=== PATIENT | female | born 1945 | race Caucasian/White ===

== ENCOUNTER 2020-06-21 12:22 | Emergency (ER) | payer MEDICARE, MEDICAID ==
[~2020-06-21] VITALS: Ht 162.5 cm; Wt 85.3 kg
[2020-06-21 12:28] VITALS: BP 131/70
--- NOTE | 2020-06-21 12:49 | ED Cardiac General ---
History of Present Illness General Stated Complaint: DIZZINESS History of Present Illness Date Seen by Provider: Jun 21, 2020 Time Seen by Provider: 12:30 Initial Comments 74-year-old female presents for generalized complaints for the last 3- 4 months of not feeling good, vertigo, weakness that is generalized, and chronic constipation. The patient denies any shortness of breath or chest pain. She saw Dr. Kaba at the beginning of the month and had lab work-up which did not show a definitive cause. She has a history of mild anxiety and takes 1/2 mg of Xanax occasionally, usually at bedtime every 2 to 3 days. She has a noted tremor to the left eye, she reports its been present for several years she had Botox injections which did not improve her symptoms. History of [place] in the past and filter to right groin. Last cardiac work up was [address] Edward: stress test and Echo. No cardiac follow up. She notices weakness when she gets up and tries to be active. No history of Parkinson's, Her father did have Parkinson's disease. No history of diabetes. Thyroid disorder 20-30 years ago, took Synthroid and then her labs showed normal thyroid function and she stopped taking it. She reports sleeping more than normal. No history or exposure to COVID-19, she received her first vaccine 2 weeks ago. She takes Xarelto daily. She denies a history anemia, no recent labs for comparison. She has never had a colonoscopy, concerned because of a hernia and history of friends who have had colon perforations with colonoscopies. She does report frequent falls or bumping into things because of her unsteady gait. She denies any injuries related to the falls, no head injuries or LOC. Timing/Duration: other (3-4 months) Severity: mild Prior CP/Workup: echocardiography, heart attack, stress test Modifying Factors: improves with rest NTG SL BARGE PILOT: No ASA po BARGE PILOT: No Associated Systoms: No Chest Pain, No Cough, No Diaphoresis, No Fever/Chills, No Headaches; Loss of Appetite, Malaise; No Nausea/Vomiting, No Rash, No Seizure, No Shortness of Air, No Syncope; Weakness Allergies and Home Medications Allergies Coded Allergies: codeine (Verified Allergy, Unknown, 06/21/20) Patient Home Medication List Home Medication List Reviewed: Yes Review of Systems Review of Systems Constitutional: see HPI, dizziness, malaise, weakness EENTM: No Symptoms Reported, See HPI Respiratory: No Symptoms Reported, See HPI; Denies Shortness of Air, Denies SOA With Exertion Cardiovascular: No Symptoms Reported, See HPI; Denies Chest Pain Gastrointestinal: See HPI, Constipated Genitourinary: No Symptoms Reported, See HPI Musculoskeletal: see HPI, muscle weakness (generalized) Skin: no symptoms reported, see HPI; No change in color, No dryness Psychiatric/Neurological: See HPI, Anxiety, Tremors (left eye) Hematologic/Lymphatic: See HPI, Anemia All Other Systems Reviewed Negative Unless Noted: Yes Physical Exam Vital Signs Vital Signs - First Documented 06/21/20 12:28 Temp 36.1 Pulse 72 Resp 16 B/P (MAP) 131/70 (90) Pulse Ox 98 O2 Delivery Room Air Capillary Refill : Height, Weight, BMI Height: '" Weight: lbs. oz. kg; BMI Method: General Appearance: WD/WN, Anxious HEENT: PERRL/EOMI, TMs Normal, Normal ENT Inspection, Pharynx Normal, Other (noted tremor to left eye with excessive tearing) Neck: Full Range of Motion, Normal Inspection, Non Tender, Supple Respiratory: Chest Non Tender, Lungs Clear, Normal Breath Sounds Cardiovascular: Regular Rate, Rhythm, No Edema, No Murmur, Normal Peripheral Pulses Gastrointestinal: Normal Bowel Sounds, Non Tender, Soft Extremity: Normal Capillary Refill, Normal Inspection, Normal Range of Motion, No Calf Tenderness, No Pedal Edema, Other (ambulates with an unsteady gait, patient reports this has been present for several months, not getting worse. She does not use a walker or cane. She is able to raise onto her toes and heels but cannot ambulate on either. 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 Skin: Normal Color, Warm/Dry; No Ecchymosis (no bruises from falls) Progress/Results/Core Measures Results/Orders Lab Results Laboratory Tests Test 06/21/20 12:50 06/21/20 14:05 06/21/20 14:17 Range/Units White Blood Count 9.0 8.3 4.3-11.0 10^3/uL Red Blood Count 3.04 L 2.96 L 3.80-5.11 10^6/uL Hemoglobin 8.2 L 8.0 L 11.5-16.0 g/dL Hematocrit 26 L 25 L 35-52 % Mean Corpuscular Volume 85 86 80-99 fL Mean Corpuscular Hemoglobin 27 27 25-34 pg Mean Corpuscular Hemoglobin Concent 32 32 32-36 g/dL Red Cell Distribution Width 13.6 13.7 10.0-14.5 % Platelet Count 328 336 130-400 10^3/uL Mean Platelet Volume 9.1 9.8 9.0-12.2 fL Immature Granulocyte % (Auto) 0 0 % Neutrophils (%) (Auto) 70 66 42-75 % Lymphocytes (%) (Auto) 21 25 12-44 % Monocytes (%) (Auto) 8 8 0-12 % Eosinophils (%) (Auto) 0 0 0-10 % Basophils (%) (Auto) 1 1 0-10 % Neutrophils # (Auto) 6.3 5.5 1.8-7.8 10^3/uL Lymphocytes # (Auto) 1.9 2.1 1.0-4.0 10^3/uL Monocytes # (Auto) 0.7 0.7 0.0-1.0 10^3/uL Eosinophils # (Auto) 0.0 0.0 0.0-0.3 10^3/uL Basophils # (Auto) 0.1 0.1 0.0-0.1 10^3/uL Immature Granulocyte # (Auto) 0.0 0.0 0.0-0.1 10^3/uL Prothrombin Time 24.1 H 12.2-14.7 SEC INR Comment 2.1 H 0.8-1.4 Activated Partial Thromboplast Time 52 H 24-35 SEC D-Dimer 0.81 H 0.00-0.49 UG/ML Sodium Level 137 135-145 MMOL/L Potassium Level 4.1 3.6-5.0 MMOL/L Chloride Level 105 98-107 MMOL/L Carbon Dioxide Level 23 21-32 MMOL/L Anion Gap 9 5-14 MMOL/L Blood Urea Nitrogen 25 H 7-18 MG/DL Creatinine 1.47 H 0.60-1.30 MG/DL Estimat Glomerular Filtration Rate 35 BUN/Creatinine Ratio 17 Glucose Level 97 70-105 MG/DL Calcium Level 9.0 8.5-10.1 MG/DL Corrected Calcium 9.2 8.5-10.1 MG/DL Total Bilirubin 0.3 0.1-1.0 MG/DL Aspartate Amino Transf (AST/SGOT) 17 5-34 U/L Alanine Aminotransferase (ALT/SGPT) 8 0-55 U/L Alkaline Phosphatase 93 40-136 U/L Troponin I < 0.028 <0.028 NG/ML C-Reactive Protein High Sensitivity 0.50 0.00-0.50 MG/DL B-Type Natriuretic Peptide 110.3 H <100.0 PG/ML Total Protein 6.8 6.4-8.2 GM/DL Albumin 3.8 3.2-4.5 GM/DL TSH [place] Testing 1.60 0.35-4.94 UIU/ML Neutrophils % (Manual) 70 % Lymphocytes % (Manual) 25 % Monocytes % (Manual) 5 % Percent Immature Platelet Fraction 2.0 0.0-7.6 % Blood Morphology Comment SEE NOTE Absolute Reticulocyte Count 55 24-90 10e9/uL Percent Reticulocyte Count 1.84 0.50-2.40 % Urine Color YELLOW Urine Clarity CLEAR Urine pH 6.0 5-9 Urine Specific [place] 1.010 L 1.016-1.022 Urine Protein NEGATIVE NEGATIVE Urine Glucose (UA) NEGATIVE NEGATIVE Urine Ketones NEGATIVE NEGATIVE Urine Nitrite NEGATIVE NEGATIVE Urine Bilirubin NEGATIVE NEGATIVE Urine Urobilinogen 0.2 < = 1.0 MG/DL Urine Leukocyte Esterase 2+ H NEGATIVE Urine RBC (Auto) NEGATIVE NEGATIVE Urine RBC NONE /HPF Urine WBC 10-25 H /HPF Urine Squamous Epithelial Cells RARE /HPF Urine Renal Epithelial Cells 2-5 /HPF Urine Crystals NONE /LPF Urine Bacteria TRACE /HPF Urine Casts NONE /LPF Urine Mucus NEGATIVE /LPF Urine Culture Indicated YES My Orders Orders - AMPARO LOPEZ Ekg Tracing (06/21/20 12:46) BNP (06/21/20 12:46) Cbc With Automated Diff (06/21/20 12:46) Comprehensive Metabolic Panel (06/21/20 12:46) Hs C Reactive Protein (06/21/20 12:46) Protime With Inr (06/21/20 12:46) Partial Thromboplastin Time (06/21/20 12:46) Thyroid Analyzer (06/21/20 12:46) Troponin I (06/21/20 12:46) Fibrin Degradation Products (06/21/20 12:46) Meclizine Tablet (Antivert Tablet) (06/21/20 13:00) Ct Head Wo (06/21/20 13:22) Iron Tibc %Sat & Ferritin (06/21/20 13:59) Cyanocobalamin Injection (Vitamin B-12 I (06/21/20 14:30) Ua Culture If Indicated (06/21/20 14:39) Urine Culture (06/21/20 14:17) Anemia Analyzer Hem Tests (06/21/20 14:05) Cbc And Manual Diff (06/21/20 14:05) Immature Platelet Fraction (06/21/20 14:05) Reticulocyte Count (06/21/20 14:05) Anemia Analyzer Pathology (06/21/20 14:05) Medications Given in ED Current Medications Medications Dose Ordered Sig/Brendan Route Start Time Stop Time Status Last Admin Dose Admin Cyanocobalamin 1,000 mcg ONCE ONCE IM 06/21/20 14:30 06/21/20 14:31 DC 06/21/20 14:27 1,000 MCG Meclizine HCl 25 mg ONCE ONCE PO 06/21/20 13:00 06/21/20 13:01 DC 06/21/20 12:57 25 MG Vital Signs/I&O 06/21/20 12:28 Temp 36.1 Pulse 72 Resp 16 B/P (MAP) 131/70 (90) Pulse Ox 98 O2 Delivery Room Air Progress Progress Note : Time: 12:30 Progress Note 74-year-old female seen and evaluated, will obtain labs, EKG and CT head. Meclizine 25 mg for dizziness. 1315 Concern for possible Parkinsons based on her subjective and objective symptoms. Discussed need for further follow up, colonoscopy, lab work for anemia (she denies eating red meats, she doesn't like the smell or taste), will need to take Iron but with her constipation, she needs to take stool softeners and more water in her diet. Cane or walker discussed for the balance issues and unsteady gait. 1345 Spoke to nurse at Dr. Kaba's, she did not have CBC in the last 12 months to compare results from today. Will check for anemia, labs send out. Encouraged she follow up with her PCP and have labs requested from here or establish with a new PCP, who is closer to her home. 1400 Will give Vit B12 IM. 1415 Discussed all results with the patient and her . Nothing acute to warrant admission but she needs careful follow up for a confirmatory diagnosis. 1500 Spoke to pathologist, peripheral smear was normal, will send blood to [place] lab for anemia panel. Results will be sent to PCP. Initial ECG Impression Date: Jun 21, 2020 Initial ECG Rhythm: Normal Sinus Initial ECG Intervals: Normal Initial ECG Comparisson: No Previous ECG Available Diagnostic Imaging Diagonstic Imaging: CT Plain Films/CT/US/NM/MRI: head Comments NAME: LAURA VALVERDE [facility] REC#: [id number] PT STATUS: REG ER : 1945 PHYSICIAN: AMPARO LOPEZ ADMIT DATE: 06/21/20/ER Draft Date of Exam:06/21/20 CT HEAD WO PROCEDURE: CT head without contrast. TECHNIQUE: Multiple contiguous axial images were obtained through the brain without the use of intravenous contrast. Auto Exposure Controls were utilized during the CT exam to meet ALARA standards for radiation dose reduction. INDICATION: Weakness and dizziness. COMPARISON: No prior studies are available for comparison. FINDINGS: Ventricles and sulci are within normal limits. No sulcal effacement or midline shift is identified. No acute intra-axial or extra-axial hemorrhage is detected. Cisterns are patent. Visualized paranasal sinuses are clear. IMPRESSION: No acute intracranial process is detected. Dictated on workstation # [id number] Dict: 06/21/20 1335 Trans: 06/21/20 1338 [id number] [id number] Interpreted by: ALMA BARRAGAN MD Electronically signed by: Departure Impression Primary Impression: Vertigo Additional Impressions: Anemia Qualified Codes: D64.9 - Anemia, unspecified Unsteady gait Falls frequently Disposition: 01 HOME, SELF-CARE Condition: Stable Departure-Patient Inst. Decision time for Depature: 14:00 Referrals: YAKOV ESPINOZA JOHN M MD (PCP/Family) Primary Care Physician ALY EDWARD MD FACP FACC CCDS Patient Instructions: Vertigo (a Type of Dizziness) (DC), Anemia, Possibly From Low Iron, Adult Add. Discharge Instructions: Use walker at all times for ambulation to prevent falls and assist with dizziness and unsteady gait. Follow up with Dr. Kaba or establish care with a primary care provider closer to home (Dr. Fitzgerald at the [facility] or Dr. Phuong Scott at [facility] in [place]). Use [id number] meclizine 25 mg every 8 hours as needed for dizziness. Begin taking a multivitamin such as Centrum daily. Increase water intake, 16 ounces every 2-3 hours while awake. Take a stool softener twice daily. Consider evaluation by general surgery (Dr. Espinoza or [place]) for a colonoscopy. Call Dr. Edward, for cardiology follow up. Return to the Emergency Dept for new, urgent healthcare needs. Scripts Walker (Ultra-Light Rollator) 1 Each Each EACH DAILY PRN for DIZZINESS, #1 0 Refills Use when ambulatory Prov: AMPARO LOPEZ 06/21/20 Copy Copies To 1: LENKA KABA MD, AMY ARNP Jun 21, 2020 12:49
[2020-06-21 12:59] LABS: BASOPHILS # (AUTO) 0.1 10^3/uL (0.0-0.1); BASOPHILS % (AUTO) 1 % (0-10); EOSINOPHILS % (AUTO) 0 % (0-10); HEMATOCRIT 26 % (35-52); HEMOGLOBIN 8.2 g/dL (11.5-16.0); LYMPHOCYTES # (AUTO) 1.9 10^3/uL (1.0-4.0); LYMPHOCYTES % (AUTO) 21 % (12-44); MEAN CORPUSCULAR HEMOGLOBIN 27 pg (25-34); MEAN CORPUSCULAR HGB CONC 32 g/dL (32-36); MEAN CORPUSCULAR VOLUME 85 fL (80-99); MEAN PLATELET VOLUME 9.1 fL (9.0-12.2); MONOCYTES # (AUTO) 0.7 10^3/uL (0.0-1.0); MONOCYTES % (AUTO) 8 % (0-12); NEUTROPHILS # (AUTO) 6.3 10^3/uL (1.8-7.8); NEUTROPHILS % (AUTO) 70 % (42-75); PLATELET COUNT 328 10^3/uL (130-400)
[2020-06-21] MEDS ORDERED: MECLIZINE 25 MG (ANTIVERT) TAB PO ONE (13:00)
[2020-06-21 13:12] LABS: FIBRIN DEGRADATION PRODUCTS 0.81 UG/ML (0.00-0.49); INR 2.1 (0.8-1.4); PROTHROMBIN TIME PATIENT 24.1 SEC (12.2-14.7)
[2020-06-21 13:19] LABS: ALANINE AMINOTRANSFERASE 8 U/L (0-55); ALBUMIN 3.8 GM/DL (3.2-4.5); ALKALINE PHOSPHATASE 93 U/L (40-136); BILIRUBIN,TOTAL 0.3 MG/DL (0.1-1.0); BUN/CREATININE RATIO 17; CARBON DIOXIDE 23 MMOL/L (21-32); CHLORIDE 105 MMOL/L (98-107); CREATININE SERUM 1.47 MG/DL (0.60-1.30); GFR ESTIMATED 35; GLUCOSE 97 MG/DL (70-105); POTASSIUM 4.1 MMOL/L (3.6-5.0); SODIUM 137 MMOL/L (135-145); TOTAL PROTEIN 6.8 GM/DL (6.4-8.2)
--- NOTE | 2020-06-21 13:39 | Diagnostic Imaging Report ---
PROCEDURE: CT head without contrast. TECHNIQUE: Multiple contiguous axial images were obtained through the brain without the use of intravenous contrast. Auto Exposure Controls were utilized during the CT exam to meet ALARA standards for radiation dose reduction. INDICATION: Weakness and dizziness. COMPARISON: No prior studies are available for comparison. FINDINGS: Ventricles and sulci are within normal limits. No sulcal effacement or midline shift is identified. No acute intra-axial or extra-axial hemorrhage is detected. Cisterns are patent. Visualized paranasal sinuses are clear. IMPRESSION: No acute intracranial process is detected. Dictated by: Dictated on workstation # [id number]
[2020-06-21] MEDS ORDERED: WALK1EAC23 MC (14:03)
[2020-06-21] MEDS ORDERED: CYANOCOBALAMIN INJ 1000 MCG/ML IM ONE (14:30)
[2020-06-21 14:45] LABS: BILIRUBIN,URINE NEGATIVE (NEGATIVE); CLARITY,URINE CLEAR; COLOR,URINE YELLOW; GLUCOSE, URINE (UA) NEGATIVE (NEGATIVE); KETONES,URINE NEGATIVE (NEGATIVE); LEUKOCYTE ESTERASE ,URINE 2+ (NEGATIVE); NITRITE,URINE NEGATIVE (NEGATIVE); PROTEIN,URINE NEGATIVE (NEGATIVE)
[2020-06-21 15:02] LABS: BACTERIA,URINE TRACE /HPF; SQUAMOUS EPITHELIAL CELL,UR RARE /HPF
[2020-06-21 15:44] LABS: ABSOLUTE RETIC # 55 10e9/uL (24-90); BASOPHILS # (AUTO) 0.1 10^3/uL (0.0-0.1); BASOPHILS % (AUTO) 1 % (0-10); EOSINOPHILS % (AUTO) 0 % (0-10); HEMATOCRIT 25 % (35-52); LYMPHOCYTES # (AUTO) 2.1 10^3/uL (1.0-4.0); LYMPHOCYTES % (AUTO) 25 % (12-44); LYMPHOCYTES % (MANUAL) 25 %; MEAN CORPUSCULAR HEMOGLOBIN 27 pg (25-34); MEAN CORPUSCULAR HGB CONC 32 g/dL (32-36); MEAN CORPUSCULAR VOLUME 86 fL (80-99); MEAN PLATELET VOLUME 9.8 fL (9.0-12.2); MONOCYTES # (AUTO) 0.7 10^3/uL (0.0-1.0); MONOCYTES % (AUTO) 8 % (0-12); MONOCYTES % (MANUAL) 5 %; NEUTROPHILS # (AUTO) 5.5 10^3/uL (1.8-7.8); NEUTROPHILS % (AUTO) 66 % (42-75); NEUTROPHILS % (MANUAL) 70 %; PLATELET COUNT 336 10^3/uL (130-400); RETICULOCYTE % 1.84 % (0.50-2.40); WHITE BLOOD COUNT 8.3 10^3/uL (4.3-11.0)
== END 2020-06-21 14:34 | disposition home or self-care (01) ==
LOC: EDUNIT# 12:22 → ER 12:24
DX: R42 Dizziness and giddiness (principal); D64.9 Anemia, unspecified; R26.9 Unspecified abnormalities of gait and mobility; R29.6 Repeated falls; I10 Essential (primary) hypertension; Z88.5 Allergy status to narcotic agent
CPT/HCPCS: 36415; 70450; 80053; 81000; 82607; 82728; 82746; 83540; 83550; 83880; 84443; 84484; 85007; 85027; 85045; 85055; 85379; 85610; 85730; 86141; 87088; 93005

== ENCOUNTER 2021-11-14 14:56 | Inpatient (IN) | payer MEDICARE, MEDICAID ==
[~2021-11-14] VITALS: Ht 160 cm; Wt 85.7 kg
[~2021-11-14 14:56] MED LIST: WALK1EAC23 MC
--- NOTE | 2021-11-14 15:29 | ED General ---
General Chief Complaint: General Problems/Pain Stated Complaint: DIZZY/WEAKNESS Nursing Triage Note: PT ARRIVED VIA WHEELCHAIR WITH HER DAUGHTER AND GREAT GRANDSON. PT STATED THAT SHE HAS BEEN DIZZY, WEAK, AND SOB FOR 2 WEEKS. Source of Information: Patient Exam Limitations: No Limitations History of Present Illness Date Seen by Provider: Nov 14, 2021 Time Seen by Provider: 15:28 Initial Comments Patient is a 76-year-old female who presents to the ED with dizziness and weakness, lightheadedness. Symptoms over the past 2 weeks. States she is having difficulty getting around at home secondary to feeling weak which is diffuse. She states she feels like she is going to faint. Denies of room spinning. She has been having intermittent chest pain for some time with no worsening pain throughout the past 2 weeks. She states she is short of breath with ambulation. Denies of any increased leg swelling. She reports history of chronic back pain with spinal stenosis. She has weakness and pain to her left leg. No recent falls but did fall in July resulting in pain in her left leg. She is concerned for DVT. Currently on Xarelto. She reports a mild headache without significant visual changes. She does states she has some vision changes while watching TV. No fever, abdominal pain, cough. She states she has no urinary symptoms. Patient denies of any dark or bloody stools Allergies and Home Medications Allergies Coded Allergies: codeine (Verified Allergy, Unknown, 06/21/20) Patient Home Medication List Home Medication List Reviewed: Yes Walker (Ultra-Light Rollator) 1 Each Each, EACH MC DAILY PRN for DIZZINESS, (DME) Prescribed by: AMPARO LOPEZ on 06/21/20 1403 Review of Systems Review of Systems Constitutional: No diaphoresis; malaise EENTM: No blurred vision, No double vision, No mouth pain, No mouth swelling, No throat pain, No throat swelling Respiratory: No cough; short of breath Cardiovascular: chest pain Gastrointestinal: No abdominal pain, No diarrhea, No nausea, No vomiting Genitourinary: No decreased output Musculoskeletal: back pain, joint pain, muscle pain Skin: No see HPI, No change in color All Other Systems Reviewed Negative Unless Noted: Yes Past Gjxakvc-Twragh-Xzndrp Hx Patient Social History Tobacco Use?: No Substance use?: Yes Substance type: Marijuana Substance frequency: Once in a while Alcohol Use?: No Immunizations Up To Date Tetanus Booster (TDap): Unknown Influenza Vaccine Up-to-Date: Yes; Up-to-Date Seasonal Allergies Seasonal Allergies: No Past Medical History Surgery/Hospitalization HX: 2014 HEART ATTACK Surgeries: Yes Eye Surgery, Hysterectomy Respiratory: No Cardiac: Yes Hypertension Neurological: No INVESTIGATIONS CHIEF History: Hysterectomy Genitourinary: No Gastrointestinal: No Musculoskeletal: Yes Endocrine: No Cancer: No Psychosocial: Yes Anxiety Integumentary: No Physical Exam Vital Signs Vital Signs - First Documented 11/14/21 15:03 Temp 36.6 Pulse 85 Resp 16 B/P (MAP) 131/61 (84) Pulse Ox 98 O2 Delivery Room Air Capillary Refill : Less Than 3 Seconds Height, Weight, BMI Height: '" Weight: lbs. oz. kg; 32.00 BMI Method: General Appearance: No Apparent Distress, WD/WN Eyes: Bilateral Eye Normal Inspection, Bilateral Eye PERRL, Bilateral Eye EOMI HEENT: PERRL/EOMI, TMs Normal, Normal ENT Inspection, Pharynx Normal Neck: Full Range of Motion, Normal Inspection, Non Tender, Supple Respiratory: Chest Non Tender, Lungs Clear, Normal Breath Sounds, No Accessory Muscle Use, No Respiratory Distress Cardiovascular: Regular Rate, Rhythm, No Edema, No Gallop, No JVD Gastrointestinal: Normal Bowel Sounds, No Organomegaly, No Pulsatile Mass Back: Other (Lumbar midline tenderness. Bilateral lumbar paraspinal muscle tenderness.) Extremity: Normal Capillary Refill, Other (Equal pulses bilateral lower extremity. Tenderness to palpate left leg without swelling, bruising or redness. No coolness or evidence of redness) Neurologic/Psychiatric: Alert, Oriented x3, No Motor/Sensory Deficits, Normal Mood/Affect Progress/Results/Core Measures Suspected Sepsis SIRS Temperature: Pulse: 85 Respiratory Rate: 16 Laboratory Tests 11/14/21 16:45: White Blood Count 7.0 Blood Pressure 131 /61 Mean: 84 Laboratory Tests 11/14/21 16:45: Creatinine 1.54H, INR Comment 1.6H, Platelet Count 298, Total Bilirubin 0.2 Results/Orders Lab Results Laboratory Tests Test 11/14/21 15:25 11/14/21 16:45 Range/Units Urine Color YELLOW Urine Clarity CLEAR Urine pH 5.0 5-9 Urine Specific [place] 1.010 L 1.016-1.022 Urine Protein NEGATIVE NEGATIVE Urine Glucose (UA) NEGATIVE NEGATIVE Urine Ketones NEGATIVE NEGATIVE Urine Nitrite NEGATIVE NEGATIVE Urine Bilirubin NEGATIVE NEGATIVE Urine Urobilinogen 0.2 < = 1.0 MG/DL Urine Leukocyte Esterase 1+ H NEGATIVE Urine RBC (Auto) NEGATIVE NEGATIVE Urine RBC NONE /HPF Urine WBC 2-5 /HPF Urine Squamous Epithelial Cells NONE /HPF Urine Crystals NONE /LPF Urine Bacteria NEGATIVE /HPF Urine Casts NONE /LPF Urine Mucus NEGATIVE /LPF Urine Culture Indicated NO Influenza Type A (RT-PCR) Not Detected Not Detecte Influenza Type B (RT-PCR) Not Detected Not Detecte SARS-CoV-2 RNA (RT-PCR) Not Detected Not Detecte White Blood Count 7.0 4.3-11.0 10^3/uL Red Blood Count 2.35 L 3.80-5.11 10^6/uL Hemoglobin 6.2 *L 11.5-16.0 g/dL Hematocrit 20 *L 35-52 % Mean Corpuscular Volume 84 80-99 fL Mean Corpuscular Hemoglobin 26 25-34 pg Mean Corpuscular Hemoglobin Concent 32 32-36 g/dL Red Cell Distribution Width 14.0 10.0-14.5 % Platelet Count 298 130-400 10^3/uL Mean Platelet Volume 9.2 9.0-12.2 fL Immature Granulocyte % (Auto) 0 % Neutrophils (%) (Auto) 68 42-75 % Lymphocytes (%) (Auto) 23 12-44 % Monocytes (%) (Auto) 8 0-12 % Eosinophils (%) (Auto) 0 0-10 % Basophils (%) (Auto) 1 0-10 % Neutrophils # (Auto) 4.8 1.8-7.8 10^3/uL Lymphocytes # (Auto) 1.6 1.0-4.0 10^3/uL Monocytes # (Auto) 0.6 0.0-1.0 10^3/uL Eosinophils # (Auto) 0.0 0.0-0.3 10^3/uL Basophils # (Auto) 0.1 0.0-0.1 10^3/uL Immature Granulocyte # (Auto) 0.0 0.0-0.1 10^3/uL Prothrombin Time 19.4 H 12.2-14.7 SEC INR Comment 1.6 H 0.8-1.4 Activated Partial Thromboplast Time 46 H 24-35 SEC Sodium Level 134 L 135-145 MMOL/L Potassium Level 4.0 3.6-5.0 MMOL/L Chloride Level 104 98-107 MMOL/L Carbon Dioxide Level 23 21-32 MMOL/L Anion Gap 7 5-14 MMOL/L Blood Urea Nitrogen 30 H 7-18 MG/DL Creatinine 1.54 H 0.60-1.30 MG/DL Estimat Glomerular Filtration Rate 35 BUN/Creatinine Ratio 19 Glucose Level 124 H 70-105 MG/DL Calcium Level 9.1 8.5-10.1 MG/DL Corrected Calcium 9.5 8.5-10.1 MG/DL Magnesium Level 1.8 1.6-2.4 MG/DL Total Bilirubin 0.2 0.1-1.0 MG/DL Aspartate Amino Transf (AST/SGOT) 13 5-34 U/L Alanine Aminotransferase (ALT/SGPT) 9 0-55 U/L Alkaline Phosphatase 81 40-136 U/L Troponin I < 0.028 <0.028 NG/ML B-Type Natriuretic Peptide 93.7 <100.0 PG/ML Total Protein 6.3 L 6.4-8.2 GM/DL Albumin 3.5 3.2-4.5 GM/DL Lipase 13 8-78 U/L My Orders Orders - JANA DIETZ Urinalysis (11/14/21 15:02) Us Venous Lower Ext Lt (11/14/21 15:16) Cbc With Automated Diff (11/14/21 15:16) Comprehensive Metabolic Panel (11/14/21 15:16) Lipase (11/14/21 15:16) Bnp [place] (11/14/21 15:16) Troponin I [place] (11/14/21 15:16) Magnesium (11/14/21 15:16) Ekg Tracing (11/14/21 15:16) Chest 1 View, Ap/Pa Only (11/14/21 15:16) Covid 19 Inhouse Test (11/14/21 15:16) Influenza A And B By Pcr (11/14/21 15:16) Ns Iv 1000 Ml (Sodium Chloride 0.9%) (11/14/21 16:33) Partial Thromboplastin Time (11/14/21 16:34) Protime With Inr (11/14/21 16:34) Ct Head Wo (11/14/21 16:35) Type And Screen (11/14/21 17:07) Pantoprazole Injection (Protonix Injecti (11/14/21 17:45) Vital Signs/I&O 11/14/21 15:03 Temp 36.6 Pulse 85 Resp 16 B/P (MAP) 131/61 (84) Pulse Ox 98 O2 Delivery Room Air Capillary Refill : Less Than 3 Seconds Blood Pressure Mean: 84 ECG Comment Sinus rhythm with first-degree AV block, 71 bpm, QRS duration 141 MS, QTc 416 MS Departure Communication (PCP) Patient is a 76-year-old female who presents the ED for weakness fatigue dark tarry stool. Intermittent chest pain but denies of any worsening pain. Currently on Xarelto secondary to DVT left lower abd. She does report left leg pain. Denies unilateral muscle weakness or sensory changes. Neuro exam u nremarkable. Ultrasound the left leg secondary to the pain with previous injury was negative for DVT. History of spinal stenosis. Equal pulses bilateral lower extremity. Denies of any bowel or urine incontinence or saddle paresthesia. EKG showed sinus rhythm with first-degree AV block. Cardiac work-up unremarkable. Chest x-ray positive for cardiomegaly but negative for pneumonia or pneumothorax. Hemoglobin 6.2. Hemoccult positive. Denies excessive NSAID use. No severe abdominal tenderness on palpation or complaining of abdominal pain at this time. Imaging was held. Chronic kidney disease stable. Patient will be started on 2 units of blood. Protonix 40 mg IV twice daily. Patient will be admitted for further evaluation. Patient was accepted by Dr. Taylor Impression Primary Impression: GI bleed Disposition: ADMITTED INPATIENT Condition: Stable Admissions Decision to Admit Reason: Admit from ER (General) Decision to Admit/Date: Nov 14, 2021 Time/Decision to Admit Time: 17:34 Departure-Patient Inst. Referrals: LENKA KABA MD (PCP/Family) Primary Care Physician JANA DIETZ Nov 14, 2021 15:29
[2021-11-14 15:36] LABS: BILIRUBIN,URINE NEGATIVE (NEGATIVE); CLARITY,URINE CLEAR; COLOR,URINE YELLOW; GLUCOSE, URINE (UA) NEGATIVE (NEGATIVE); KETONES,URINE NEGATIVE (NEGATIVE); LEUKOCYTE ESTERASE ,URINE 1+ (NEGATIVE); NITRITE,URINE NEGATIVE (NEGATIVE); PROTEIN,URINE NEGATIVE (NEGATIVE)
[2021-11-14 15:45] LABS: BACTERIA,URINE NEGATIVE /HPF
--- NOTE | 2021-11-14 15:57 | Diagnostic Imaging Report ---
PROCEDURE: US left lower extremity venous. TECHNIQUE: Multiple real-time grayscale images were obtained over the left lower extremity in various projections. Additional duplex Doppler and color Doppler images were also obtained. INDICATION: Left leg pain. There is no evidence of left lower extremity DVT. Left lower extremity deep venous system shows normal compressibility with normal response to augmentation and valsalva. No fluid collection or mass is detected. IMPRESSION: No evidence of left lower extremity DVT. Dictated by: Dictated on workstation # [id number]
--- NOTE | 2021-11-14 16:21 | Diagnostic Imaging Report ---
INDICATION: Cough and dizziness and weakness. TECHNIQUE: Frontal chest obtained at 04:01 p.m. FINDINGS: There is cardiomegaly and mild central vascular prominence. There is no focal infiltrate or pneumothorax or pleural fluid. IMPRESSION: Cardiomegaly and mild central vascular prominence. No focal infiltrate or pneumothorax or pleural fluid. Dictated by: Dictated on workstation # [id number]
[2021-11-14] MEDS ORDERED: NS IV 1000 ML 1,000 ML IV STA (16:33)
[2021-11-14 16:54] LABS: BASOPHILS # (AUTO) 0.1 10^3/uL (0.0-0.1); BASOPHILS % (AUTO) 1 % (0-10); EOSINOPHILS % (AUTO) 0 % (0-10); LYMPHOCYTES # (AUTO) 1.6 10^3/uL (1.0-4.0); LYMPHOCYTES % (AUTO) 23 % (12-44); MEAN CORPUSCULAR HEMOGLOBIN 26 pg (25-34); MEAN CORPUSCULAR HGB CONC 32 g/dL (32-36); MEAN CORPUSCULAR VOLUME 84 fL (80-99); MEAN PLATELET VOLUME 9.2 fL (9.0-12.2); MONOCYTES # (AUTO) 0.6 10^3/uL (0.0-1.0); MONOCYTES % (AUTO) 8 % (0-12); NEUTROPHILS # (AUTO) 4.8 10^3/uL (1.8-7.8); NEUTROPHILS % (AUTO) 68 % (42-75); PLATELET COUNT 298 10^3/uL (130-400)
[2021-11-14 16:55] LABS: HEMOGLOBIN 6.2 g/dL (11.5-16.0)
[2021-11-14 16:56] LABS: HEMATOCRIT 20 % (35-52)
--- NOTE | 2021-11-14 17:14 | Diagnostic Imaging Report ---
PROCEDURE: CT head without contrast. TECHNIQUE: Multiple contiguous axial images were obtained through the brain without the use of intravenous contrast. Auto Exposure Controls were utilized during the CT exam to meet ALARA standards for radiation dose reduction. INDICATION: Dizziness and weakness. COMPARISON: Comparison is made with prior head CT from 06/21/2020. FINDINGS: Ventricles and sulci appear stable. There is no sulcal effacement. There is no midline shift. No acute intra-axial or extra-axial hemorrhage is detected. Cisterns are patent. The visualized paranasal sinuses are clear. IMPRESSION: Stable noncontrast head CT. No acute intracranial process is detected. Dictated by: Dictated on workstation # [id number]
[2021-11-14 17:17] LABS: INR 1.6 (0.8-1.4); PROTHROMBIN TIME PATIENT 19.4 SEC (12.2-14.7)
[2021-11-14 17:20] LABS: ALBUMIN 3.5 GM/DL (3.2-4.5); CHLORIDE 104 MMOL/L (98-107)
[2021-11-14 17:21] LABS: SODIUM 134 MMOL/L (135-145)
[2021-11-14 17:22] LABS: CALCIUM 9.1 MG/DL (8.5-10.1)
[2021-11-14 17:23] LABS: GLUCOSE 124 MG/DL (70-105); TOTAL PROTEIN 6.3 GM/DL (6.4-8.2)
[2021-11-14 17:24] LABS: CARBON DIOXIDE 23 MMOL/L (21-32)
[2021-11-14 17:25] LABS: BILIRUBIN,TOTAL 0.2 MG/DL (0.1-1.0)
[2021-11-14 17:26] LABS: ALKALINE PHOSPHATASE 81 U/L (40-136); CREATININE SERUM 1.54 MG/DL (0.60-1.30); GFR ESTIMATED 35
[2021-11-14 17:27] LABS: BUN/CREATININE RATIO 19
[2021-11-14 17:29] LABS: ALANINE AMINOTRANSFERASE 9 U/L (0-55); MAGNESIUM 1.8 MG/DL (1.6-2.4)
[2021-11-14 17:30] LABS: LIPASE 13 U/L (8-78)
[2021-11-14] MEDS ORDERED: PANTOPRAZOLE 40 MG (PROTONIX) VIAL IV ONE (17:45)
[2021-11-14 18:43] VITALS: BP 143/78
[2021-11-14] MEDS ORDERED: NS IV 500 ML 500 ML IV ONE (18:45)
[2021-11-14] MEDS ORDERED: CATHETER FLUSH 10 ML SYR IVP PRN (19:00)
[2021-11-14 19:07] VITALS: BP 134/63
--- NOTE | 2021-11-14 19:51 | Consultation - Surgery ---
PEACE LU 11/14/211950: History of Present Illness History of Present Illness Patient Consulted On(nadira/time) 11/14/21 19:50 Date Seen by Provider: Nov 14, 2021 Time Seen by Provider: 19:50 Reason for Visit: Anemia History of Present Illness 76yo female with h/o ventral hernia, hysterectomy, bladder surgery, HTN, pericardial effusion, and abdominal DVT, presents to the ED with c/o weakness and lightheadedness that has been worsening for the past 2 weeks. Pt notes that lightheadedness is worsened with movement and has been having trouble with daily activities. Pt states that when she stands she now feels like she is going to faint. Pt notes associated shortness of breath with ambulation that has limited her daily life. Pt notes that she has history of DVT in the left lower abdomen that required surgical intervention in 2013. Pt currently takes Xarelto. Pt states that she had an EGD [address] Barragan d/t low iron level. Pt had a Hgb of 6.4 in the ED and was hemoccult positive. Per ED physician, pt had left LE pain after a fall and was concerned about DVT. Pt had doppler study done in ED that showed no evidence of a left lower extremity DVT. Pt denies having ever having a colonoscopy. Pt denies vomiting, nausea, blood in the stool or urine, abd pain, CP, and sweats. Pt had a chest CT on 11/14 that showed cardiomegaly and mild vascular prominence. There were no focal infiltrates, pneumothorax, or pleural fluid noted. Pt had a head CT on 11/14 that showed no acute intracranial process. Allergies and Home Medications Allergies Coded Allergies: codeine (Verified Allergy, Unknown, 06/21/20) Patient Home Medication List Calcium Carbonate/Mag Oxide/Zn (Nfdotro-Yochpobzh-Rvpp Tablet) 333 Mg-133 Mg-5 Mg Tablet, 1 EACH PO 1200, (Reported) Entered as Reported by: АЛЕКСАНДР BRIGHT on 11/15/21 114 Last Action: Held Clonazepam (Clonazepam) 1 Mg Tablet, 1 MG PO HS PRN for ANXIETY, (Reported) Entered as Reported by: АЛЕКСАНДР BRIGHT on 11/15/21 1146 Last Action: Continued Cyanocobalamin (Vitamin B-12) (Vitamin B-12) 2,500 Mcg Tab.subl, 2,500 MCG SL DAILY, (Reported) Entered as Reported by: АЛЕКСАНДР BRIGHT on 11/15/211145 Last Action: Held Cyclobenzaprine HCl (Cyclobenzaprine HCl) 10 Mg Tablet, 10 MG PO HS, (Reported) Entered as Reported by: АЛЕКСАНДР BRIGHT on 11/15/211145 Last Action: Continued Iron,Carbonyl/Ascorbic Acid (Iron 100-Vitamin C Tablet) 100 Mg-250 Mg Tablet, 1 EACH PO DAILY, (Reported) Entered as Reported by: АЛЕКСАНДР BRIGHT on 11/15/211145 Last Action: Held Meloxicam (Meloxicam) 15 Mg Tablet, 15 MG PO HS, (Reported) Entered as Reported by: АЛЕКСАНДР BRIGHT on 11/15/211145 Last Action: Held Multivitamin (Multivitamin) 1 Each Tablet, 1 EACH PO 1200, (Reported) Entered as Reported by: АЛЕКСАНДР BRIGHT on 11/15/211145 Last Action: Converted Olmesartan/Hydrochlorothiazide (Olmesartan-Hctz 40-12.5 mg Tab) 40 Mg-12.5 Mg Tablet, 0.5 EA PO DAILY, (Reported) Entered as Reported by: АЛЕКСАНДР BRIGHT on 11/15/211145 Last Action: Converted Propranolol HCl (Propranolol HCl) 20 Mg Tablet, 20 MG PO DAILY, (Reported) Entered as Reported by: АЛЕКСАНДР BRIGHT on 11/15/211145 Last Action: Continued Propranolol HCl (Propranolol HCl) 20 Mg Tablet, 40 MG PO HS, (Reported) Entered as Reported by: АЛЕКСАНДР BRIGHT on 11/15/211145 Last Action: Continued Rivaroxaban (Xarelto) 20 Mg Tablet, 20 MG PO DAILY, (Reported) Entered as Reported by: АЛЕКСАНДР BRIGHT on 11/15/211145 Last Action: Held Tramadol HCl (Tramadol HCl) 50 Mg Tablet, 50 MG PO Q6H PRN for PAIN-MODERATE (5- 7), (Reported) Entered as Reported by: АЛЕКСАНДР BRIGHT on 11/15/211145 Last Action: Continued Discontinued Medications Walker (Ultra-Light Rollator) 1 Each Each, EACH MC DAILY PRN for DIZZINESS, (DME) Discontinued Reason: No Longer Taking Prescribed by: AMPARO LOPEZ on 06/21/20 1403 Last Action: Discontinued Past Ornwzru-Hxmnaj-Lxgvfw Hx Patient Social History Smoking Status: Never a Smoker Recent Hopitalizations: No Alcohol Use?: No Substance type: Marijuana Immunizations Up To Date Tetanus Booster (TDap): Unknown Seasonal Allergies Seasonal Allergies: No Surgeries History of Surgeries: Yes Surgeries: Eye Surgery, Hysterectomy Respiratory History of Respiratory Disorde: No Cardiovascular History of Cardiac Disorders: Yes Cardiac Disorders: Hypertension Neurological History of Neurological Disord: No Reproductive System CLAIM REP History: Hysterectomy Genitourinary History of Genitourinary Disor: No Gastrointestinal History of Gastrointestinal Di: No Musculoskeletal History of Musculoskeletal Dis: Yes Endocrine History of Endocrine Disorders: No Cancer History of Cancer: No Psychosocial History of Psychiatric Problem: Yes Behavioral Health Disorders: Anxiety Integumentary History of Skin or Integumenta: No Family Medical History Family Medial History: Alzheimer's disease Cardiovascular disease Parkinson's disease Review of Systems-General Constitutional: No chills, No diaphoresis EENTM: No ear discharge, No mouth swelling Respiratory: No cough, No hemoptysis Cardiovascular: No chest pain, No edema Gastrointestinal: No abdominal pain, No hematemesis Genitourinary: No hematuria, No incontinence Musculoskeletal: No joint swelling, No muscle twitching Skin: No change in color, No change in hair/nails Psychiatric/Neurological: Denies Anxiety, Denies Depressed Physical Exam-General Problems Physical Exam Vital Signs Vital Signs - First Documented 11/14/21 15:03 Temp 36.6 Pulse 85 Resp 16 B/P (MAP) 131/61 (84) Pulse Ox 98 O2 Delivery Room Air Capillary Refill : Less Than 3 Seconds General Appearance: WD/WN, no apparent distress HEENT: PERRL/EOMI, normal ENT inspection Neck: non-tender, normal inspection Respiratory: no respiratory distress, no accessory muscle use Cardiovascular: no edema, no JVD Gastrointestinal: non tender, soft Rectal: deferred Back: normal inspection, no CVA tenderness Extremities: normal range of motion, non-tender Neurologic/Psychiatric: alert, normal mood/affect Skin: normal color, warm/dry Lymphatic: no adenopathy Data Review Labs Laboratory Tests 11/14/21 15:25: Urine Color YELLOW, Urine Clarity CLEAR, Urine pH 5.0, Urine Specific [place] 1.010L, Urine Protein NEGATIVE, Urine Glucose (UA) NEGATIVE, Urine Ketones NEGATIVE, Urine Nitrite NEGATIVE, Urine Bilirubin NEGATIVE, Urine Urobilinogen 0.2, Urine Leukocyte Esterase 1+H, Urine RBC (Auto) NEGATIVE, Urine RBC NONE, Urine WBC 2-5, Urine Squamous Epithelial Cells NONE, Urine Crystals NONE, Urine Bacteria NEGATIVE, Urine Casts NONE, Urine Mucus NEGATIVE, Urine Culture Indicated NO, Influenza Type A (RT-PCR) Not Detected, Influenza Type B (RT-PCR) Not Detected, SARS-CoV-2 RNA (RT-PCR) Not Detected 11/14/21 16:45: White Blood Count 7.0, Red Blood Count 2.35L, Hemoglobin 6.2*L, Hematocrit 20*L, Mean Corpuscular Volume 84, Mean Corpuscular Hemoglobin 26, Mean Corpuscular Hemoglobin Concent 32, Red Cell Distribution Width 14.0, Platelet Count 298, Mean Platelet Volume 9.2, Immature Granulocyte % (Auto) 0, Neutrophils (%) (Auto) 68, Lymphocytes (%) (Auto) 23, Monocytes (%) (Auto) 8, Eosinophils (%) (Auto) 0, Basophils (%) (Auto) 1, Neutrophils # (Auto) 4.8, Lymphocytes # (Auto) 1.6, Monocytes # (Auto) 0.6, Eosinophils # (Auto) 0.0, Basophils # (Auto) 0.1, Immature Granulocyte # (Auto) 0.0, Prothrombin Time 19.4H, INR Comment 1.6H, Activated Partial Thromboplast Time 46H, Sodium Level 134L, Potassium Level 4.0, Chloride Level 104, Carbon Dioxide Level 23, Anion Gap 7, Blood Urea Nitrogen 30H, Creatinine 1.54H, Estimat Glomerular Filtration Rate 35, BUN/Creatinine Ratio 19, Glucose Level 124H, Calcium Level 9.1, Corrected Calcium 9.5, Magnesium Level 1.8, Total Bilirubin 0.2, Aspartate Amino Transf (AST/SGOT) 13, Alanine Aminotransferase (ALT/SGPT) 9, Alkaline Phosphatase 81, Troponin I < 0.0 28, B-Type Natriuretic Peptide 93.7, Total Protein 6.3L, Albumin 3.5, Lipase 13 Assessment/Plan Assessment/Plan Assessment/Plan Anemia Lightheadedness h/o abdominal DVT h/o pericardial effusion ventral hernia Monitor labs NPO Plan for EGD and Colonoscopy YAKOV ESPINOZA DO 11/15/21 4151: History of Present Illness History of Present Illness History of Present Illness Consult requested by DR. BARRAGAN for anemia Patient is a 76-year-old female who presents to the emergency department with weakness and lightheadedness. This is been increasing over the last couple weeks. Patient notes that with ambulating she gets more short of breath. She is on anticoagulation. This is due to a history of DVT multiple years ago. She states that she had an EGD approximately 6 months ago due to a low iron level with Dr. Anthony. She has never had a colonoscopy. Her hemoglobin was 6.4 and she was found to be Hemoccult positive. She notes some pain in her left lower extremity but her ultrasound for DVT was negative. Allergies and Home Medications Allergies Coded Allergies: codeine (Verified Allergy, Unknown, 06/21/20) Patient Home Medication List Home Medication List Reviewed: Yes Calcium Carbonate/Mag Oxide/Zn (Aypzuuh-Qaovglgbp-Rkbu Tablet) 333 Mg-133 Mg-5 Mg Tablet, 1 EACH PO 1200, (Reported) Entered as Reported by: АЛЕКСАНДР BRIGHT on 11/15/211145 Last Action: Held Clonazepam (Clonazepam) 1 Mg Tablet, 1 MG PO HS PRN for ANXIETY, (Reported) Entered as Reported by: АЛЕКСАНДР BRIGHT on 11/15/211145 Last Action: Continued Cyanocobalamin (Vitamin B-12) (Vitamin B-12) 2,500 Mcg Tab.subl, 2,500 MCG SL DAILY, (Reported) Entered as Reported by: АЛЕКСАНДР BRIGHT on 11/15/211145 Last Action: Held Cyclobenzaprine HCl (Cyclobenzaprine HCl) 10 Mg Tablet, 10 MG PO HS, (Reported) Entered as Reported by: АЛЕКСАНДР BRIGHT on 11/15/211145 Last Action: Continued Iron,Carbonyl/Ascorbic Acid (Iron 100-Vitamin C Tablet) 100 Mg-250 Mg Tablet, 1 EACH PO DAILY, (Reported) Entered as Reported by: АЛЕКСАНДР BRIGHT on 11/15/211145 Last Action: Held Meloxicam (Meloxicam) 15 Mg Tablet, 15 MG PO HS, (Reported) Entered as Reported by: АЛЕКСАНДР BRIGHT on 11/15/211145 Last Action: Held Multivitamin (Multivitamin) 1 Each Tablet, 1 EACH PO 1200, (Reported) Entered as Reported by: АЛЕКСАНДР BRIGHT on 11/15/211145 Last Action: Converted Olmesartan/Hydrochlorothiazide (Olmesartan-Hctz 40-12.5 mg Tab) 40 Mg-12.5 Mg Tablet, 0.5 EA PO DAILY, (Reported) Entered as Reported by: АЛЕКСАНДР BRIGHT on 11/15/211145 Last Action: Converted Propranolol HCl (Propranolol HCl) 20 Mg Tablet, 20 MG PO DAILY, (Reported) Entered as Reported by: АЛЕКСАНДР BRIGHT on 11/15/211145 Last Action: Continued Propranolol HCl (Propranolol HCl) 20 Mg Tablet, 40 MG PO HS, (Reported) Entered as Reported by: АЛЕКСАНДР BRIGHT on 11/15/211145 Last Action: Continued Rivaroxaban (Xarelto) 20 Mg Tablet, 20 MG PO DAILY, (Reported) Entered as Reported by: АЛЕКСАНДР BRIGHT on 11/15/211145 Last Action: Held Tramadol HCl (Tramadol HCl) 50 Mg Tablet, 50 MG PO Q6H PRN for PAIN-MODERATE (5- 7), (Reported) Entered as Reported by: АЛЕКСАНДР BRIGHT on 11/15/211145 Last Action: Continued Discontinued Medications Walker (Ultra-Light Rollator) 1 Each Each, EACH MC DAILY PRN for DIZZINESS, (DME) Discontinued Reason: No Longer Taking Prescribed by: AMPARO LOPEZ on 06/21/20 1403 Last Action: Discontinued Past Sirhyvv-Gzgwve-Ncenhj Hx Reviewed Nursing Assessment Reviewed/Agree w Nursing PMH: Yes Family Medical History Significant Family History: No Pertinent Family Hx Family Medial History: Alzheimer's disease Cardiovascular disease Parkinson's disease Review of Systems-General Constitutional: No chills, No diaphoresis; weakness EENTM: No ear discharge, No blurred vision, No mouth pain, No mouth swelling Respiratory: No cough; dyspnea on exertion; No hemoptysis Cardiovascular: No chest pain, No edema Gastrointestinal: No abdominal pain, No hematemesis Genitourinary: No decreased output, No discharge, No hematuria, No incontinence Musculoskeletal: No joint swelling, No muscle twitching Skin: No change in color, No change in hair/nails Psychiatric/Neurological: Denies Anxiety, Denies Depressed All Other Systems Reviewed Negative Unless Noted: Yes (Negative excepted noted.) Physical Exam-General Problems Physical Exam General Appearance: WD/WN, no apparent distress HEENT: PERRL/EOMI, normal ENT inspection Neck: non-tender, supple, normal inspection Respiratory: chest non-tender, no respiratory distress, no accessory muscle use Cardiovascular: regular rate, rhythm, no JVD Gastrointestinal: non tender, soft Rectal: deferred Back: normal inspection, no CVA tenderness Extremities: normal range of motion, non-tender Neurologic/Psychiatric: alert, normal mood/affect Skin: warm/dry, pallor Lymphatic: no adenopathy Assessment/Plan Assessment/Plan Assessment/Plan Anemia Occult positive stool residential anticoagulation Lightheadedness h/o abdominal DVT h/o pericardial effusion ventral hernia Monitor labs NPO hold anticoagulatino 2 units prbc follow hgb transfuse as needed Protonix Plan for inpatient vs outpatient EGD and Colonoscopy Supervisory-Addendum Brief Verification & Attestation Participated in pt care: history, MDM, physical Personally performed: exam, history, MDM, supervision of care Care discussed with: Medical Student Procedures: n/a Results interpretation: Verified all documentation Verification and Attestation of Medical Student E/M Service A medical student performed and documented this service in my presence. I reviewed and verified all information documented by the medical student and made modifications to such information, when appropriate. I personally performed the physical exam and medical decision making. Yakov Espinoza, Nov 14, 2021,22:16 PEACE LU Nov 14, 2021 19:51 YAKOV ESPINOZA DO Nov 15, 2021 17:11
[2021-11-14 20:01] VITALS: BP 143/78
[2021-11-14] MEDS: PANTOPRAZOLE 40 MG (PROTONIX) VIAL IV SCH (21:18)
[2021-11-14] MEDS: CATHETER FLUSH 10 ML SYR IVP SCH (21:18)
[2021-11-14 21:28] VITALS: BP 111/65
[2021-11-14 21:55] VITALS: BP 138/65
[2021-11-15] VITALS (9 sets, daily range): BP systolic 121–152; BP diastolic 69–95
[2021-11-15 05:56] LABS: BASOPHILS # (AUTO) 0.1 10^3/uL (0.0-0.1); BASOPHILS % (AUTO) 1 % (0-10); EOSINOPHILS % (AUTO) 0 % (0-10); HEMATOCRIT 27 % (35-52); HEMOGLOBIN 8.7 g/dL (11.5-16.0); LYMPHOCYTES # (AUTO) 1.3 10^3/uL (1.0-4.0); LYMPHOCYTES % (AUTO) 21 % (12-44); MEAN CORPUSCULAR HEMOGLOBIN 28 pg (25-34); MEAN CORPUSCULAR HGB CONC 33 g/dL (32-36); MEAN CORPUSCULAR VOLUME 84 fL (80-99); MEAN PLATELET VOLUME 9.6 fL (9.0-12.2); MONOCYTES # (AUTO) 0.6 10^3/uL (0.0-1.0); MONOCYTES % (AUTO) 9 % (0-12); NEUTROPHILS # (AUTO) 4.3 10^3/uL (1.8-7.8); NEUTROPHILS % (AUTO) 69 % (42-75); PLATELET COUNT 264 10^3/uL (130-400); WHITE BLOOD COUNT 6.3 10^3/uL (4.3-11.0)
[2021-11-15] MEDS: CATHETER FLUSH 10 ML SYR IVP SCH ×3 (05:59→23:12)
[2021-11-15 06:13] LABS: POTASSIUM 3.9 MMOL/L (3.6-5.0)
[2021-11-15 06:14] LABS: CALCIUM 8.9 MG/DL (8.5-10.1)
[2021-11-15 06:18] LABS: CREATININE SERUM 1.2 MG/DL (0.60-1.30)
[2021-11-15] MEDS: PANTOPRAZOLE 40 MG (PROTONIX) VIAL IV SCH ×2 (09:02→23:12)
--- NOTE | 2021-11-15 10:44 | History & Physical-Hospitalist ---
History of Present Illness HPI/Chief Complaint Patient is a 76-year-old female with a past medical history of hypertension, DVT on Xarelto, coronary artery disease who presented to the ER due to weakness and shortness of breath. She reports her symptoms started roughly 2 weeks ago and have continued to worsen in that time span. She has a known history of anemia and her hemoglobin has been checked by her primary care doctor. She states a few months ago her hemoglobin was 6 and she was prescribed IV iron. Last month her hemoglobin was 12. Yesterday she was so weak that she could not even do her dishes and was very short of breath so decided to seek evaluation in the emergency room after talking with her primary care doctor's office. In the ER she was found to have a hemoglobin of 6.2 and was admitted for further work-up. Her Hemoccult was positive. She does report dark stools but thought it was due to the iron she takes. Source: patient Date Seen 11/15/21 Time Seen by a Provider: 09:45 Attending Physician Abdullahi Anthony MD PCP Admitting Physician: Clive Barragan MD Attending Physician: lCive Barragan MD Referring Physician Date of Admission Nov 14, 2021 at 17:38 Home Medications & Allergies Home Medications Reviewed patient Home Medication Reconciliation performed by pharmacy medication reconciliations engineering specialist technician and/or nursing. Patients Allergies have been reviewed. Allergies Allergies Coded Allergies codeine (Verified Allergy, Unknown, 06/21/20) Past Lvnwfzj-Slymel-Ogvoks Hx Patient Social History Employed/Student: retired Tobacco Use?: No Smoking Status: Never a Smoker Smokeless Tobacco Frequency: Never a User Use of E-Cig and/or Vaping dev: No Use of E-Cig and/or Vaping Aramis: Never a User Substance use?: No Substance type: Marijuana Substance frequency: Once in a while Alcohol Use?: No Pt feels they are or have been: No Immunizations Up To Date Tetanus Booster (TDap): More Than 5 Years Hepatitis A: Yes Hepatitis B: Yes Seasonal Allergies Seasonal Allergies: No Current Status status: No status: No Advance Directives: No Communicates: Verbally Primary Language: Sinhala Preferred Spoken Language: Sinhala Is interpretation needed?: No Implanted or Applied Medical D: None Past Medical History Surgeries: Eye Surgery, Hysterectomy Deep Vein Thrombosis, Heart Attack, Hypertension 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 Anxiety Family Medical History Reviewed Nursing Family Hx Alzheimer's disease Cardiovascular disease Parkinson's disease Review of Systems Constitutional: No chills, No fever; malaise, weakness EENTM: no symptoms reported Respiratory: No cough; dyspnea on exertion, short of breath Cardiovascular: No chest pain, No edema, No palpitations Gastrointestinal: No abdominal pain; melena; No nausea, No vomiting Genitourinary: no symptoms reported Musculoskeletal: joint pain (chronic knee and foot pain) Skin: no symptoms reported Psychiatric/Neurological: No Symptoms Reported Physical Exam Physical Exam Vital Signs Vital Signs - First Documented 11/14/21 15:03 Temp 36.6 Pulse 85 Resp 16 B/P (MAP) 131/61 (84) Pulse Ox 98 O2 Delivery Room Air Capillary Refill : Less Than 3 Seconds Height, Weight, BMI Height: '" Weight: lbs. oz. kg; 33.47 BMI Method: General Appearance: No Apparent Distress, WD/WN, Obese HEENT: PERRL/EOMI, Moist Mucous Membranes; No Scleral Icterus (L), No Scleral Icterus (R) Neck: Normal Inspection, Supple Respiratory: Lungs Clear, No Accessory Muscle Use, No Respiratory Distress Cardiovascular: Regular Rate, Rhythm, No JVD, No Murmur Gastrointestinal: Normal Bowel Sounds, Non Tender, Soft Extremity: Normal Capillary Refill, No Calf Tenderness, No Pedal Edema Neurologic/Psychiatric: Alert, Oriented x3, Normal Mood/Affect Skin: Normal Color, Warm/Dry Results Results/Procedures Labs Laboratory Tests 11/14/21 16:45 11/15/21 05:22 Patient resulted labs reviewed. Imaging: Reviewed Imaging Report Imaging [facility], [place] NAME: LAURA VALVERDE Lion [facility] REC#: [id number] PT STATUS: REG ER : 1945 PHYSICIAN: JANA DIETZ ADMIT DATE: 11/14/21/ER Signed Date of Exam:11/14/21 CHEST 1 VIEW, AP/PA ONLY INDICATION: Cough and dizziness and weakness. TECHNIQUE: Frontal chest obtained at 04:01 p.m. FINDINGS: There is cardiomegaly and mild central vascular prominence. There is no focal infiltrate or pneumothorax or pleural fluid. IMPRESSION: Cardiomegaly and mild central vascular prominence. No focal infiltrate or pneumothorax or pleural fluid. Dictated by: Dictated on workstation # [id number] Dict: 11/14/21 1615 Trans: 11/14/21 170 AS6 Interpreted by: FRANCK PAYNE MD Electronically signed by: FRANCK PAYNE MD 11/14/21 170 [facility], [place] NAME: LAURA VALVERDE [facility] REC#: [id number] PT STATUS: REG ER : 1945 PHYSICIAN: JANA DIETZ ADMIT DATE: 11/14/21/ER Signed Date of Exam:11/14/21 US VENOUS LOWER EXT LT PROCEDURE: US left lower extremity venous. TECHNIQUE: Multiple real-time grayscale images were obtained over the left lower extremity in various projections. Additional duplex Doppler and color Doppler images were also obtained. INDICATION: Left leg pain. There is no evidence of left lower extremity DVT. Left lower extremity deep venous system shows normal compressibility with normal response to augmentation and valsalva. No fluid collection or mass is detected. IMPRESSION: No evidence of left lower extremity DVT. Dictated by: Dictated on workstation # [id number] Dict: 11/14/21 1551 Trans: 11/14/21 171 [id number] [id number] Interpreted by: ALMA BARRAGAN MD Electronically signed by: ALMA BARRAGAN MD 11/14/211716 [facility], [place] NAME: LAURA VALVERDE [facility] REC#: [id number] PT STATUS: REG ER : 1945 PHYSICIAN: JANA DIETZ ADMIT DATE: 11/14/21/ER Signed Date of Exam:11/14/21 CT HEAD WO PROCEDURE: CT head without contrast. TECHNIQUE: Multiple contiguous axial images were obtained through the brain without the use of intravenous contrast. Auto Exposure Controls were utilized during the CT exam to meet ALARA standards for radiation dose reduction. INDICATION: Dizziness and weakness. COMPARISON: Comparison is made with prior head CT from 06/21/2020. FINDINGS: Ventricles and sulci appear stable. There is no sulcal effacement. There is no midline shift. No acute intra-axial or extra-axial hemorrhage is detected. Cisterns are patent. The visualized paranasal sinuses are clear. IMPRESSION: Stable noncontrast head CT. No acute intracranial process is detected. Dictated by: Dictated on workstation # [id number] Dict: 11/14/21 1709 Trans: 11/14/21 1716 AS6 [id number] Interpreted by: ALMA BARRAGNA MD Electronically signed by: ALMA BARRAGAN MD 11/14/21 1716 Assessment/Plan Admission Diagnosis GI Bleed Admission Status: Inpatient Order (span 2 midnights) Reason for Inpatient Admission: see below Assessment and Plan GI Bleed Hgb 6.2 on arrival Up to 8.7 with 2 units pRBCs FOBT+ Surgery consulted, appreciate recs Called Dr Davenport to discuss plan- he is operating at the moment so plan uncertain at the moment Will need EGD and colonoscopy Has never had an colonoscopy in the past History of DVT On Xarelto, held for now Usg negative at this time HTN Bp well controlled, trend Osteoarthritis Requests Ortho referral upon discharge DVT ppx: SCDs only due to anemia Diagnosis/Problems Diagnosis/Problems (1) GI bleed Status: Acute Qualifiers: GI bleed type/associated pathology: unspecified gastrointestinal hemorrhage type Qualified Codes: K92.2 - Gastrointestinal hemorrhage, unspecified (2) CAD (coronary artery disease) (3) Essential (primary) hypertension (4) Debility (5) H/O deep venous thrombosis (6) Chronic anticoagulation CLIVE BARRAGAN MD Nov 15, 2021 10:44
[2021-11-15] MEDS ORDERED: BENZONATATE 100 MG (TESSALON) CAPSULE PO PRN (10:45)
[2021-11-15] MEDS ORDERED: ANTACID SUSP 30 ML UDC (MYLANTA) PO PRN (10:45)
[2021-11-15] MEDS ORDERED: MILK OF MAGNESIA 400 MG/5 ML 30 ML UDC PO PRN (10:45)
[2021-11-15] MEDS ORDERED: MULT-1136 PO (11:46)
[2021-11-15] MEDS ORDERED: OLME-9 PO (11:46)
[2021-11-15] MEDS ORDERED: CALC-687 PO (11:46)
[2021-11-15] MEDS ORDERED: MELO15TA39 PO (11:46)
[2021-11-15] MEDS ORDERED: CYAN25003 SL (11:46)
[2021-11-15] MEDS ORDERED: PROP20TA5 PO ×2 (11:46)
[2021-11-15] MEDS ORDERED: IRON1TAB89 PO (11:46)
[2021-11-15] MEDS ORDERED: CYCL10TA25 PO (11:46)
[2021-11-15] MEDS ORDERED: CLON1TAB13 PO (11:46)
[2021-11-15] MEDS ORDERED: TRAM50TA3 PO (11:46)
[2021-11-15] MEDS ORDERED: RIVA20TA PO (11:46)
--- NOTE | 2021-11-15 14:04 | Physical Therapy Progress Note ---
Therapy Progress Note Order for PT evaluation received. Patient doesn't feel like she needs PT. She demonstrated independent bed mobility and transfers and ambulation (without assistive device). Patient states she has been independent in her room without any issues. Will DC patient from PT services at this time. KAT LE PT Nov 15, 2021 14:04
--- NOTE | 2021-11-15 14:29 | Progress Note - Surgery ---
ALYPEACE 11/15/21 1429: Subjective Date Seen by a Provider: Nov 15, 2021 Time Seen by a Provider: 14:25 Subjective/Events-last exam Pt is resting comfortably in bed. Pt denies bloody stools. Family is at bedside. Discussed scheduling an inpatient EGD/colonoscopy. Objective Exam Vital Signs Date Time Temp Pulse Resp B/P (MAP) Pulse Ox O2 Delivery O2 Flow Rate FiO2 11/15/21 11:10 36.2 79 18 131/75 (93) 95 Room Air 11/15/21 08:00 98 Room Air 11/15/21 07:22 36.0 80 18 142/77 (98) 98 Room Air 11/15/21 04:17 36.7 75 18 121/70 (87) 98 Room Air 11/15/21 00:40 36.7 67 18 122/69 99 Room Air 11/15/21 00:38 36.7 67 18 122/69 99 Room Air 11/15/21 00:31 36.7 67 18 122/69 (86) 99 Room Air 11/14/21 21:55 36.7 70 138/65 98 Room Air 11/14/21 21:28 36.8 70 18 111/65 99 Room Air 11/14/21 20:01 36.3 72 18 143/78 (99) 96 Room Air 11/14/21 19:35 98 Room Air 11/14/21 19:07 36.6 71 14 134/63 97 Room Air 11/14/21 18:43 36.3 72 14 143/78 Room Air 11/14/21 18:42 108 14 112/103 96 Room Air 11/14/21 15:03 36.6 85 16 131/61 (84) 98 Room Air I & O 11/15/21 07:00 Intake Total 1650 ml Output Total 900 ml Balance 750 ml Capillary Refill : Less Than 3 Seconds General Appearance: No Apparent Distress, WD/WN, Obese HEENT: PERRL/EOMI, Normal ENT Inspection; No Scleral Icterus (L), No Scleral Icterus (R) Neck: Normal Inspection, Supple Respiratory: No Accessory Muscle Use, No Respiratory Distress Cardiovascular: No JVD, No Murmur Gastrointestinal: non tender, soft Extremity: Normal Capillary Refill, No Pedal Edema Neurologic/Psychiatric: Alert, Normal Mood/Affect Skin: Normal Color, Warm/Dry Lymphatic: No Adenopathy Results Lab Laboratory Tests 11/14/21 15:25: Urine Color YELLOW, Urine Clarity CLEAR, Urine pH 5.0, Urine Specific [place] 1.010L, Urine Protein NEGATIVE, Urine Glucose (UA) NEGATIVE, Urine Ketones NEGATIVE, Urine Nitrite NEGATIVE, Urine Bilirubin NEGATIVE, Urine Urobilinogen 0.2, Urine Leukocyte Esterase 1+H, Urine RBC (Auto) NEGATIVE, Urine RBC NONE, Urine WBC 2-5, Urine Squamous Epithelial Cells NONE, Urine Crystals NONE, Urine Bacteria NEGATIVE, Urine Casts NONE, Urine Mucus NEGATIVE, Urine Culture Indicated NO, Influenza Type A (RT-PCR) Not Detected, Influenza Type B (RT-PCR) Not Detected, SARS-CoV-2 RNA (RT-PCR) Not Detected 11/14/21 16:45: White Blood Count 7.0, Red Blood Count 2.35L, Hemoglobin 6.2*L, Hematocrit 20*L, Mean Corpuscular Volume 84, Mean Corpuscular Hemoglobin 26, Mean Corpuscular Hemoglobin Concent 32, Red Cell Distribution Width 14.0, Platelet Count 298, Mean Platelet Volume 9.2, Immature Granulocyte % (Auto) 0, Neutrophils (%) (Auto) 68, Lymphocytes (%) (Auto) 23, Monocytes (%) (Auto) 8, Eosinophils (%) (Auto) 0, Basophils (%) (Auto) 1, Neutrophils # (Auto) 4.8, Lymphocytes # (Auto) 1.6, Monocytes # (Auto) 0.6, Eosinophils # (Auto) 0.0, Basophils # (Auto) 0.1, Immature Granulocyte # (Auto) 0.0, Prothrombin Time 19.4H, INR Comment 1.6H, Activated Partial Thromboplast Time 46H, Sodium Level 134L, Potassium Level 4.0, Chloride Level 104, Carbon Dioxide Level 23, Anion Gap 7, Blood Urea Nitrogen 30H, Creatinine 1.54H, Estimat Glomerular Filtration Rate 35, BUN/Creatinine Ratio 19, Glucose Level 124H, Calcium Level 9.1, Corrected Calcium 9.5, Magnesium Level 1.8, Total Bilirubin 0.2, Aspartate Amino Transf (AST/SGOT) 13, Alanine Aminotransferase (ALT/SGPT) 9, Alkaline Phosphatase 81, Troponin I < 0.028, B-Type Natriuretic Peptide 93.7, Total Protein 6.3L, Albumin 3.5, Lipase 13 11/15/21 05:22: White Blood Count 6.3, Red Blood Count 3.16L, Hemoglobin 8.7#L, Hematocrit 27L, Mean Corpuscular Volume 84, Mean Corpuscular Hemoglobin 28, Mean Corpuscular Hemoglobin Concent 33, Red Cell Distribution Width 14.1, Platelet Count 264, Mean Platelet Volume 9.6, Immature Granulocyte % (Auto) 0, Neutrophils (%) (Auto) 69, Lymphocytes (%) (Auto) 21, Monocytes (%) (Auto) 9, Eosinophils (%) (Auto) 0, Basophils (%) (Auto) 1, Neutrophils # (Auto) 4.3, Lymphocytes # (Auto) 1.3, Monocytes # (Auto) 0.6, Eosinophils # (Auto) 0.0, Basophils # (Auto) 0.1, Immature Granulocyte # (Auto) 0.0, Sodium Level 139, Potassium Level 3.9, Chloride Level 109H, Carbon Dioxide Level 22, Anion Gap 8, Blood Urea Nitrogen 23H, Creatinine 1.20, Estimat Glomerular Filtration Rate 47, BUN/Creatinine Ratio 19, Glucose Level 93, Calcium Level 8.9 Assessment/Plan Assessment/Plan Assessment/Plan Anemia Lightheadedness h/o abdominal DVT h/o pericardial effusion ventral hernia Monitor labs NPO Speak with Dr. Taylor concerning inpatient EGD and Colonoscopy YAKOV DAVENPORT DO 11/15/21 1721: Subjective Subjective/Events-last exam Patient states she is doing well. She denies any black or bloody stools at this time. Patient hemoglobin increased appropriately with blood transfusion. She denies any nausea vomiting fever sweats chills shortness of breath or chest pain. Objective Exam General Appearance: No Apparent Distress, WD/WN HEENT: PERRL/EOMI, Normal ENT Inspection Neck: Normal Inspection, Supple Respiratory: Chest Non Tender, No Accessory Muscle Use, No Respiratory Distress Cardiovascular: Regular Rate, Rhythm, No JVD Gastrointestinal: non tender, soft Extremity: Normal Capillary Refill, Non Tender Neurologic/Psychiatric: Alert, Normal Mood/Affect Skin: Normal Color, Warm/Dry Lymphatic: No Adenopathy Assessment/Plan Assessment/Plan Assessment/Plan Anemia Occult positive stool mcc anticoagulation Lightheadedness h/o abdominal DVT h/o pericardial effusion ventral hernia Monitor labs on clear hold anticoagulatino 2 units prbc yesterday follow hgb transfuse as needed Protonix Plan for inpatient vs outpatient EGD and Colonoscopy Supervisory-Addendum Brief Verification & Attestation Participated in pt care: history, MDM, physical Personally performed: exam, history, MDM, supervision of care Care discussed with: Medical Student Procedures: n/a Results interpretation: Verified all documentation Verification and Attestation of Medical Student E/M Service A medical student performed and documented this service in my presence. I reviewed and verified all information documented by the medical student and made modifications to such information, when appropriate. I personally performed the physical exam and medical decision making. Yakov Davenport, Nov 15, 2021,17:21 PEACE LU Nov 15, 2021 14:29 YAKOV DAVENPORT DO Nov 15, 2021 17:21
[2021-11-15] MEDS ORDERED: GOLYTELY POWDER 4000 ML BTL PO NR (18:30)
[2021-11-15] MEDS: PROPRANOLOL 20 MG (INDERAL) TABLET PO SCH (21:26)
[2021-11-15] MEDS: CYCLOBENZAPRINE 10 MG (FLEXERIL) TAB PO SCH (21:27)
[2021-11-15] MEDS: clonazePAM 1 MG (KlonoPIN) TAB PO PRN (21:30)
[2021-11-16] VITALS (8 sets, daily range): BP systolic 121–148; BP diastolic 67–84
[2021-11-16 06:11] LABS: HEMATOCRIT 27 % (35-52); HEMOGLOBIN 8.7 g/dL (11.5-16.0); MEAN CORPUSCULAR HEMOGLOBIN 27 pg (25-34); MEAN CORPUSCULAR HGB CONC 33 g/dL (32-36); MEAN CORPUSCULAR VOLUME 83 fL (80-99); MEAN PLATELET VOLUME 9.5 fL (9.0-12.2); PLATELET COUNT 273 10^3/uL (130-400); WHITE BLOOD COUNT 6.8 10^3/uL (4.3-11.0)
[2021-11-16 06:38] LABS: CALCIUM 9.2 MG/DL (8.5-10.1); CREATININE SERUM 1.21 MG/DL (0.60-1.30); POTASSIUM 3.6 MMOL/L (3.6-5.0)
[2021-11-16] MEDS: MULTIVIT W/MINERALS TAB (THERAGRAN M) PO SCH (06:42)
[2021-11-16] MEDS: CATHETER FLUSH 10 ML SYR IVP SCH ×3 (06:42→22:07)
--- NOTE | 2021-11-16 06:53 | Progress Note - Surgery ---
THELMARIOPEACE Seymour 11/16/21 0653: Subjective Date Seen by a Provider: Nov 16, 2021 Time Seen by a Provider: 06:49 Subjective/Events-last exam Pt is resting comfortably. Pt states that she is feeling more weak today but notes that she thinks it may be from not eating and getting poor sleep. Hemoglo bin is stable from yesterday. Per nurse, pt finished go lightly at midnight and has been NPO since then. Pt denies n/v, SOB, and CP. Objective Exam Vital Signs Date Time Temp Pulse Resp B/P (MAP) Pulse Ox O2 Delivery O2 Flow Rate FiO2 11/16/21 03:46 36.9 71 18 148/78 (101) 94 Room Air 11/15/21 23:54 36.7 80 20 152/95 (114) 94 Room Air 11/15/21 20:15 98 Room Air 11/15/21 19:29 36.5 81 19 138/77 (97) 95 Room Air 11/15/21 15:58 36.5 78 18 134/74 (94) 97 Room Air 11/15/21 11:10 36.2 79 18 131/75 (93) 95 Room Air 11/15/21 08:00 98 Room Air 11/15/21 07:22 36.0 80 18 142/77 (98) 98 Room Air I & O 11/16/21 07:00 Intake Total 4720 ml Output Total 1200 ml Balance 3520 ml Capillary Refill : Less Than 3 Seconds General Appearance: No Apparent Distress, WD/WN HEENT: PERRL/EOMI, Normal ENT Inspection Neck: Normal Inspection, Supple Respiratory: No Accessory Muscle Use, No Respiratory Distress Cardiovascular: No JVD, Normal Peripheral Pulses Gastrointestinal: non tender, soft Extremity: Normal Inspection, Non Tender Neurologic/Psychiatric: Alert, Normal Mood/Affect Skin: Normal Color, Warm/Dry Lymphatic: No Adenopathy Results Lab Laboratory Tests 11/16/21 05:40: White Blood Count 6.8, Red Blood Count 3.18L, Hemoglobin 8.7L, Hematocrit 27L, Mean Corpuscular Volume 83, Mean Corpuscular Hemoglobin 27, Mean Corpuscular Hemoglobin Concent 33, Red Cell Distribution Width 14.3, Platelet Count 273, Mean Platelet Volume 9.5, Sodium Level 142, Potassium Level 3.6, Chloride Level 108H, Carbon Dioxide Level 20L, Anion Gap 14, Blood Urea Nitrogen 14, Creatinine 1.21, Estimat Glomerular Filtration Rate 46, BUN/Creatinine Ratio 12, Glucose Level 96, Calcium Level 9.2 Assessment/Plan Assessment/Plan Assessment/Plan Anemia-improved Occult positive stool mcc anticoagulation Lightheadedness h/o abdominal DVT h/o pericardial effusion ventral hernia Hgb transfusion-8/9 Monitor labs NPO hold anticoagulation Pt scheduled for inpatient EGD/colonoscopy today YAKOV DAVENPORT DO 11/16/21 1711: Subjective Subjective/Events-last exam Patient toleated prep. NPO. Hgb stable today at 8.7. Still weak. Denies n/v fever sweats chills shortness of breath or chest pain. Objective Exam General Appearance: No Apparent Distress, WD/WN HEENT: PERRL/EOMI, Normal ENT Inspection Neck: Normal Inspection, Supple Respiratory: Chest Non Tender, No Accessory Muscle Use, No Respiratory Distress Cardiovascular: Regular Rate, Rhythm, No JVD Gastrointestinal: non tender, soft Extremity: Normal Inspection, Non Tender Neurologic/Psychiatric: Alert, Normal Mood/Affect Skin: Normal Color, Warm/Dry Lymphatic: No Adenopathy Assessment/Plan Assessment/Plan Assessment/Plan Anemia-improved after transfusions Occult positive stool mcc anticoagulation Lightheadedness h/o abdominal DVT h/o pericardial effusion ventral hernia Hgb transfusion-9 Monitor labs NPO hold anticoagulation Pt scheduled for inpatient EGD/colonoscopy today Supervisory-Addendum Brief Verification & Attestation Participated in pt care: history, MDM, physical Personally performed: exam, history, MDM, supervision of care Care discussed with: Medical Student Procedures: n/a Results interpretation: Verified all documentation Verification and Attestation of Medical Student E/M Service A medical student performed and documented this service in my presence. I reviewed and verified all information documented by the medical student and made modifications to such information, when appropriate. I personally performed the physical exam and medical decision making. Yakov Davenport, Nov 16, 2021,10:11 PEACE LU Nov 16, 2021 06:53 YAKOV DAVENPORT DO Nov 16, 2021 17:11
[2021-11-16] MEDS: PANTOPRAZOLE 40 MG (PROTONIX) VIAL IV SCH ×2 (08:50→22:01)
[2021-11-16] MEDS: PROPRANOLOL 20 MG (INDERAL) TABLET PO SCH ×3 (08:53→22:02)
[2021-11-16] MEDS: LOSARTAN 100 MG (COZAAR) TABLET PO SCH ×2 (08:53→12:59)
[2021-11-16] MEDS: HydroCHLOROthiazide CAP/TABLET 12.5 MG TAB PO SCH ×2 (08:53→12:59)
[2021-11-16] MEDS ORDERED: LACTATED RINGERS 1,000 ML IV STA (11:06)
[2021-11-16] MEDS ORDERED: LACTATED RINGERS 1,000 ML IV ONE (11:08)
[2021-11-16] MEDS ORDERED: HURRICAINE EXT TUBE (BENZOCAINE) XX PRN (11:15)
[2021-11-16] MEDS ORDERED: PROPOFOL INJECTION 50 ML IV ONE (11:24)
--- NOTE | 2021-11-16 11:27 | Discharge Summary ---
Diagnosis/Chief Complaint Date of Admission Nov 14, 2021 at 17:38 Date of Discharge Discharge Date: Nov 16, 2021 Admission Diagnosis GI Bleed Primary Care Abdullahi Anthony MD Discharge Diagnosis (1) GI bleed Status: Acute (2) CAD (coronary artery disease) (3) Essential (primary) hypertension (4) Debility (5) H/O deep venous thrombosis (6) Chronic anticoagulation Discharge Summary Discharge Physical Exam Allergies: Coded Allergies: codeine (Verified Allergy, Unknown, 06/21/20) Vitals & I&Os Vital Signs Date Time Temp Pulse Resp B/P (MAP) Pulse Ox O2 Delivery O2 Flow Rate FiO2 11/16/21 12:42 36.5 75 18 135/84 (101) 99 Room Air General Appearance: No Apparent Distress, WD/WN Respiratory: Lungs Clear, No Respiratory Distress Cardiovascular: Regular Rate, Rhythm, No Murmur Neurologic/Psychiatric: Alert, Oriented x3 Hospital Course Patient was admitted to the hospital secondary to anemia due to GI Bleed. Surgery was consulted and she underwent EGD and colonoscopy which revealed ___. Her hemoglobin was 6.2 on arrival and she received 2 units of packed red blood cells increasing it to 8.7. She remained stable at 8.7 with no further inter vention. She was started on Protonix twice daily and is advised to continue this. She is to follow-up with her primary care doctor, Dr. Anthony to follow-up this hospital stay. Labs (last 24 hrs) Laboratory Tests 11/16/21 05:40: White Blood Count 6.8, Red Blood Count 3.18L, Hemoglobin 8.7L, Hematocrit 27L, Mean Corpuscular Volume 83, Mean Corpuscular Hemoglobin 27, Mean Corpuscular Hemoglobin Concent 33, Red Cell Distribution Width 14.3, Platelet Count 273, Mean Platelet Volume 9.5, Sodium Level 142, Potassium Level 3.6, Chloride Level 108H, Carbon Dioxide Level 20L, Anion Gap 14, Blood Urea Nitrogen 14, Creatinine 1.21, Estimat Glomerular Filtration Rate 46, BUN/Creatinine Ratio 12, Glucose Level 96, Calcium Level 9.2 Patient resulted labs reviewed. Pending Labs Imaging: Reviewed Imaging Report Discussion & Recommendations Discharge Planning: >30 minutes discharge planning Discharge Home Medications: Active Scripts Active Reported Rvlmiab-Dwoxbrinh-Nydp Tablet (Calcium Carbonate/Mag Oxide/Zn) 333 Mg-133 Mg-5 Mg Tablet 1 Each PO 1200 Multivitamin 1 Each Tablet 1 Each PO 1200 Vitamin B-12 (Cyanocobalamin (Vitamin B-12)) 2,500 Mcg Tab.subl 2,500 Mcg SL DAILY Iron 100-Vitamin C Tablet (Iron,Carbonyl/Ascorbic Acid) 100 Mg-250 Mg Tablet 1 E ach PO DAILY Cyclobenzaprine HCl 10 Mg Tablet 10 Mg PO HS Clonazepam 1 Mg Tablet 1 Mg PO HS PRN Xarelto (Rivaroxaban) 20 Mg Tablet 20 Mg PO DAILY Olmesartan-Hctz 40-12.5 mg Tab (Olmesartan/Hydrochlorothiazide) 40 Mg-12.5 Mg Tablet 0.5 Ea PO DAILY TAKES OF A 40/12.5MG TAB Meloxicam 15 Mg Tablet 15 Mg PO HS Tramadol HCl 50 Mg Tablet 50 Mg PO Q6H PRN Propranolol HCl 20 Mg Tablet 40 Mg PO HS TAKES 2 (20MG) TABS Propranolol HCl 20 Mg Tablet 20 Mg PO DAILY Instructions to patient/family Please see electronic discharge instructions given to patient. Problem Qualifiers (1) GI bleed: GI bleed type/associated pathology: unspecified gastrointestinal hemorrhage type Qualified Codes: K92.2 - Gastrointestinal hemorrhage, unspecified CLIVE BARRAGAN MD Nov 16, 2021 11:27
--- NOTE | 2021-11-16 11:28 | Discharge Inst-Simple/Standard ---
Discharge Inst-Standard Patient Instructions/Follow Up Plan of Care/Instructions/FU: Please continue take your medications as written. Please follow-up with your primary care doctor to follow-up this hospital stay. Activity as Tolerated: Yes Discharge Diet: No Restrictions Return to The Hospital For: Chest pain, dark or bloody stools, shortness of breath, fever, weakness, if you feel you are getting worse. CLIVE BARRAGAN MD Nov 16, 2021 11:28
--- NOTE | 2021-11-16 12:41 | Anesthesia-General Post-Op ---
MAC Patient Condition Mental Status/LOC: Same as Preop Cardiovascular: Satisfactory Nausea/Vomiting: Absent Respiratory: Satisfactory Pain: Controlled Complications: Absent Post Op Complications Complications None Follow Up Care/Instructions Patient Instructions None needed. Anesthesiology Discharge Order Discharge Order Patient is doing well, no complaints, stable vital signs, no apparent adverse anesthesia problems. No complications reported per nursing. URSULA MOON DO Nov 16, 2021 12:41
[2021-11-16] MEDS ORDERED: IOHEXOL 350 MG/ML 100 ML (OMNIPAQUE 350) VIAL IV ONE (13:00)
[2021-11-16] MEDS ORDERED: NS 100 ML (IVPB) BAG IV ONE (13:00)
[2021-11-16] MEDS ORDERED: hydrOXYzine (ATARAX) 10 MG TAB PO PRN (13:30)
--- NOTE | 2021-11-16 14:36 | Diagnostic Imaging Report ---
PROCEDURE: CT chest, abdomen, and pelvis with contrast. TECHNIQUE: Multiple contiguous axial images were obtained through the chest, abdomen, and pelvis after the administration of intravenous contrast. Auto Exposure Controls were utilized during the CT exam to meet ALARA standards for radiation dose reduction. INDICATION: Recent mass found. Comparison is made with prior CT abdomen and pelvis study from 06/13/2015. CT CHEST: FINDINGS: Right lobe of the thyroid contains a 12 mm low density. No axillary lymphadenopathy is detected. No mediastinal or hilar lymphadenopathy is identified. No pericardial or pleural fluid is detected. No pulmonary infiltrates, nodules, or masses are detected. IMPRESSION: Unremarkable CT of the chest. CT ABDOMEN AND PELVIS: FINDINGS: The liver contains a tiny low-attenuation lesion in the dome of the right lobe measuring 9 mm. This is too small to accurately characterize but most likely represents a small cyst. The gallbladder is unremarkable. No biliary ductal dilatation is seen. The pancreas and spleen are unremarkable. No adrenal mass is detected. Kidneys are unremarkable. Aorta is nonaneurysmal. The small and large bowel loops are nondilated. No obstruction is seen. There are small bowel loops extending through a ventral hernia in the midline abdomen. The defect measures 4.3 cm. No strangulation or obstruction is seen. There is diverticulosis of the sigmoid colon, but no evidence of acute diverticulitis. There is a questionable mass or wall thickening in the region of the hepatic flexure and ascending colon. Findings are suspicious for colonic mass. No free fluid or fluid collection is seen. No definite abdominal or pelvic lymphadenopathy is identified. The bladder is unremarkable. Uterus appears to be surgically absent. IMPRESSION: 1. Abnormal thickening versus mass in the ascending colon. 2. Midline ventral hernia containing small bowel. No strangulation or obstruction is seen. 3. Uncomplicated diverticulosis. Dictated by: Dictated on workstation # [id number]
--- NOTE | 2021-11-16 14:42 | Progress Note - Hospitalist ---
Subjective HPI/CC On Admission Date Seen by Provider: Nov 16, 2021 Patient is a 76-year-old female with a past medical history of hypertension, DVT on Xarelto, coronary artery disease who presented to the ER due to weakness and shortness of breath. She reports her symptoms started roughly 2 weeks ago and have continued to worsen in that time span. She has a known history of anemia and her hemoglobin has been checked by her primary care doctor. She states a few months ago her hemoglobin was 6 and she was prescribed IV iron. Last month her hemoglobin was 12. Yesterday she was so weak that she could not even do her dishes and was very short of breath so decided to seek evaluation in the emergency room after talking with her primary care doctor's office. In the ER she was found to have a hemoglobin of 6.2 and was admitted for further work-up. Her Hemoccult was positive. She does report dark stools but thought it was due to the iron she takes. Subjective/Events-last exam Pt to go to EGD/Colonoscopy today. No complaints. Updated by Dr Cerda after procedure and colon mass noted. Objective Exam Vital Signs Vital Signs Date Time Temp Pulse Resp B/P (MAP) Pulse Ox O2 Delivery O2 Flow Rate FiO2 11/16/21 12:42 36.5 75 18 135/84 (101) 99 Room Air Capillary Refill : Less Than 3 Seconds General Appearance: No Apparent Distress, WD/WN Respiratory: Lungs Clear, No Respiratory Distress Cardiovascular: Regular Rate, Rhythm, No Murmur Neurologic/Psychiatric: Alert, Oriented x3 Results/Procedures Lab Laboratory Tests 11/16/21 05:40 Patient resulted labs reviewed. Imaging: Reviewed Imaging Report Assessment/Plan Assessment and Plan Assess & Plan/Chief Complaint GI Bleed Invasive adenocarcinoma- POA Hgb 6.2 on arrival Up to 8.7 with transfusion and stable today FOBT+ Surgery consulted, appreciate recs EGD and colonoscopy revealed mass in colon- discussed with Dr Cerda and planning for resection tomorrow CT Chest/Abd/Pelvis ordered by Dr Cerda History of DVT On Xarelto, held for now Usg negative at this time HTN Bp well controlled, trend Osteoarthritis Requests Ortho referral upon discharge DVT ppx: SCDs only due to anemia and surgery Diagnosis/Problems Diagnosis/Problems (1) GI bleed Status: Acute Qualifiers: GI bleed type/associated pathology: unspecified gastrointestinal hemorrhage type Qualified Codes: K92.2 - Gastrointestinal hemorrhage, unspecified (2) CAD (coronary artery disease) (3) Essential (primary) hypertension (4) Debility (5) H/O deep venous thrombosis (6) Chronic anticoagulation CLIVE BARRAGAN MD Nov 16, 2021 14:41
[2021-11-16] MEDS: clonazePAM 1 MG (KlonoPIN) TAB PO PRN (22:02)
[2021-11-16] MEDS: CYCLOBENZAPRINE 10 MG (FLEXERIL) TAB PO SCH (22:02)
[2021-11-16] MEDS: MELATONIN 3 MG TABLET PO PRN (23:38)
[2021-11-17] VITALS (12 sets, daily range): BP systolic 105–170; BP diastolic 56–82
--- NOTE | 2021-11-17 01:56 | OPERATIVE REPORT ---
DATE OF SERVICE: 11/16/2021 PREOPERATIVE DIAGNOSES: Anemia, occult positive stool. POSTOPERATIVE DIAGNOSES: Hiatal hernia, ascending colon mass, diverticulosis. PROCEDURE: EGD and colonoscopy with cold biopsies and Mady inking of the ascending colon mass. SURGEON: Yakov Davenport DO ANESTHESIA: Per MDA. ESTIMATED BLOOD LOSS: Scant. COMPLICATIONS: None. INDICATIONS: The patient is a 76-year-old female who admitted for anemia and occult positive stools. She was discussed risks and benefits of proceeding with EGD and colonoscopy. She understands and wishes to proceed. Consent was signed in the chart. DESCRIPTION OF PROCEDURE: The patient was taken to the endoscopy suite, placed in left lateral recumbent position. Timeout was performed. Scope was inserted in mouth, down the esophagus, stomach and into the duodenum without difficulty. There were no polyps, masses or ulcerations within the duodenum. Scope was slowly retracted back into the stomach where it was further insufflated. No polyps, masses or ulcerations. Scope was retroflexed noting a small hiatal hernia, no other pathology. Scope was returned to its normal position, slowly withdrawn to distal esophagus. No polyps, masses or ulcerations. Scope was slowly retracted back until completely removed. Digital rectal exam was performed. No palpable polyps, masses or ulcerations. Scope was inserted in the rectum and advanced all the way to cecum with minimal difficulty. Prep was adequate. Scope was slowly retracted back. No polyps, masses or ulcerations in the cecum. In the ascending colon, a large mass, which was approximately two-thirds circumferential was present which was friable and slight bleeding. Multiple biopsies were obtained. Just distal to the area, Mady ink was tattooed in two different locations, one mL in each location. Scope was then continued slowly retracted back. No polyps, masses or ulcerations within remainder of the ascending, transverse, descending and sigmoid colon. In the sigmoid colon, demonstrated some diverticulosis. No other pathology. Once the rectum was retroflexed noting no other pathology. Scope was returned to its normal position, slowly withdrawn until completely removed. The patient tolerated procedure well without any complications, taken to recovery room in stable condition. RECOMMENDATIONS: Due to the friability and anemia, bleeding and she has been on long-term anticoagulation. We discussed doing a right colon resection. We will get a CT scan of the chest, abdomen and pelvis, frozen demonstrated invasive adenocarcinoma. We will get blood work. Job ID: [id number] DocumentID: [id number] Dictated Date: 11/16/2021 16:09:07 Development Expert Date: 11/17/2021 01:55:18 Dictated By: YAKOV DAVENPORT DO
[2021-11-17 05:23] LABS: HEMATOCRIT 27 % (35-52); HEMOGLOBIN 8.7 g/dL (11.5-16.0); MEAN CORPUSCULAR HEMOGLOBIN 27 pg (25-34); MEAN CORPUSCULAR HGB CONC 33 g/dL (32-36); MEAN CORPUSCULAR VOLUME 85 fL (80-99); MEAN PLATELET VOLUME 9.2 fL (9.0-12.2); PLATELET COUNT 265 10^3/uL (130-400)
[2021-11-17 06:10] LABS: ALBUMIN 3.3 GM/DL (3.2-4.5); BILIRUBIN,TOTAL 0.7 MG/DL (0.1-1.0); CALCIUM 9.1 MG/DL (8.5-10.1); CREATININE SERUM 1.16 MG/DL (0.60-1.30); POTASSIUM 3.5 MMOL/L (3.6-5.0); TOTAL PROTEIN 5.8 GM/DL (6.4-8.2)
--- NOTE | 2021-11-17 06:46 | Progress Note - Surgery ---
ALYPEACE 11/17/21 0646: Subjective Date Seen by a Provider: Nov 17, 2021 Time Seen by a Provider: 06:41 Subjective/Events-last exam Pt is resting comfortably in bed. Family at bedside. Discussed results of CT scan results with pt. Pt has no other complaints at this time. Pt denies n/v, s hortness of breath, and sweats. Pt had a Chest CT on Pt had an chest/abdominal/pelvis CT on 11/16. Abd/pelvis showed abnormal thickening vs mass in the ascending colon, midline ventral hernia, uncomplicated diverticulosis, and no strangulation or obstruction seen. Chest was unremarkable Objective Exam Vital Signs Date Time Temp Pulse Resp B/P (MAP) Pulse Ox O2 Delivery O2 Flow Rate FiO2 11/17/21 03:44 36.7 61 18 111/56 (74) 99 Room Air 11/16/21 23:33 36.8 70 18 121/67 (85) 99 Room Air 11/16/21 20:00 96 Room Air 11/16/21 19:23 36.8 68 18 136/67 (90) 98 Room Air 11/16/21 15:18 36.6 75 18 140/80 (100) 98 Room Air 11/16/21 12:42 36.5 75 18 135/84 (101) 99 Room Air 11/16/21 12:13 74 12 99 Room Air 11/16/21 12:10 73 12 93 OxyMask 11/16/21 08:03 36.2 73 18 126/74 (91) 97 Room Air 11/16/21 08:00 97 Room Air I & O 11/17/21 07:00 Intake Total 970 ml Balance 970 ml Capillary Refill : Less Than 3 Seconds General Appearance: No Apparent Distress, WD/WN HEENT: PERRL/EOMI, Normal ENT Inspection Neck: Normal Inspection, Supple Respiratory: Chest Non Tender, No Accessory Muscle Use, No Respiratory Distress Cardiovascular: Regular Rate, Rhythm, No JVD Gastrointestinal: non tender, soft Extremity: Normal Inspection, Non Tender Neurologic/Psychiatric: Alert, Normal Mood/Affect Skin: Normal Color, Warm/Dry Lymphatic: No Adenopathy Results Lab Laboratory Tests 11/17/21 05:01: White Blood Count 7.0, Red Blood Count 3.17L, Hemoglobin 8.7L, Hematocrit 27L, Mean Corpuscular Volume 85, Mean Corpuscular Hemoglobin 27, Mean Corpuscular Hemoglobin Concent 33, Red Cell Distribution Width 14.7H, Platelet Count 265, Mean Platelet Volume 9.2, Sodium Level 138, Potassium Level 3.5L, Chloride Level 107, Carbon Dioxide Level 22, Anion Gap 9, Blood Urea Nitrogen 9, Creatinine 1.16, Estimat Glomerular Filtration Rate 49, BUN/Creatinine Ratio 8, Glucose Level 98, Calcium Level 9.1, Corrected Calcium 9.7, Total Bilirubin 0.7, Aspartate Amino Transf (AST/SGOT) 16, Alanine Aminotransferase (ALT/SGPT) 12, Alkaline Phosphatase 80, Total Protein 5.8L, Albumin 3.3 Assessment/Plan Assessment/Plan Assessment/Plan Anemia-improved after transfusions Occult positive stool senior living anticoagulation Lightheadedness h/o abdominal DVT h/o pericardial effusion ventral hernia Hgb transfusion-11/14 Monitor labs obtain blood work this morning NPO hold anticoagulation Proceed with colon resection YAKOV DAVENPORT DO 11/17/21 0724: Subjective Subjective/Events-last exam Patient doing well. No abdominal pain. No nausea or vomiting. Denies any fever sweats chills shortness of breath or chest pain. Patient hemoglobin 8.7. She is n.p.o. currently. No new complaints. CT scan results discussed. Objective Exam General Appearance: No Apparent Distress, WD/WN HEENT: PERRL/EOMI, Normal ENT Inspection Neck: Normal Inspection Respiratory: Chest Non Tender, No Accessory Muscle Use, No Respiratory Distress Cardiovascular: Regular Rate, Rhythm, No JVD Gastrointestinal: non tender, soft Extremity: Normal Inspection, Non Tender Neurologic/Psychiatric: Alert, Oriented x3, Normal Mood/Affect Skin: Normal Color, Warm/Dry Lymphatic: No Adenopathy Assessment/Plan Assessment/Plan Assessment/Plan Anemia-improved after transfusions Occult positive stool senior living anticoagulation Lightheadedness h/o abdominal DVT h/o pericardial effusion ventral hernia Hgb transfusion-11/14 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 Supervisory-Addendum Brief Verification & Attestation Participated in pt care: history, MDM, physical Personally performed: exam, history, MDM, supervision of care Care discussed with: Medical Student Procedures: n/a Results interpretation: Verified all documentation Verification and Attestation of Medical Student E/M Service A medical student performed and documented this service in my presence. I reviewed and verified all information documented by the medical student and made modifications to such information, when appropriate. I personally performed the physical exam and medical decision making. Yakov Davenport, Nov 17, 2021,07:24 PEACE LU Nov 17, 2021 06:46 YAKOV DAVENPORT DO Nov 17, 2021 07:24
[2021-11-17] MEDS: CATHETER FLUSH 10 ML SYR IVP SCH ×3 (07:14→21:36)
[2021-11-17] MEDS: MULTIVIT W/MINERALS TAB (THERAGRAN M) PO SCH (07:14)
[2021-11-17] MEDS: HydroCHLOROthiazide CAP/TABLET 12.5 MG TAB PO SCH (08:33)
[2021-11-17] MEDS: LOSARTAN 100 MG (COZAAR) TABLET PO SCH (08:33)
[2021-11-17] MEDS: PROPRANOLOL 20 MG (INDERAL) TABLET PO SCH ×3 (08:33→21:21)
[2021-11-17] MEDS: PANTOPRAZOLE 40 MG (PROTONIX) VIAL IV SCH ×2 (08:33→21:20)
[2021-11-17] MEDS ORDERED: ROCURONIUM 50 MG/5 ML (ZEMURON) VIAL IV ONE (12:31)
[2021-11-17] MEDS ORDERED: proPOfol 200 MG/20 ML (DIPRIVAN) VIAL IV ONE (12:31)
[2021-11-17] MEDS ORDERED: hydrALAZINE (APESOLINE) 20 MG/ML VIAL ONE (12:31)
[2021-11-17] MEDS ORDERED: LIDOCAINE PF 2% 5 ML (XYLOCAINE) VIAL ONE (12:31)
[2021-11-17] MEDS ORDERED: fentaNYL INJ 100 MCG/2 ML AMP ONE ×2 (12:32→16:02)
[2021-11-17] MEDS ORDERED: BUP/EPI 0.5% 1:200,000 (MARCAINE) 10ML VIAL IJ ONE (13:00)
[2021-11-17] MEDS ORDERED: ceFAZolin 2 GM IV Premixed 50 ML ONE (13:18)
[2021-11-17] MEDS ORDERED: metroNIDAZOLE 500MG/100ML IVPB 100 ML ONE (13:18)
[2021-11-17] MEDS ORDERED: ceFAZolin 2 GM IV Premixed 50 ML IV ONE (13:30)
[2021-11-17] MEDS ORDERED: metroNIDAZOLE 500MG/100ML IVPB 100 ML IV ONE (13:30)
[2021-11-17] MEDS: LACTATED RINGERS 1,000 ML IV PRN ×2 (13:59→15:15)
--- NOTE | 2021-11-17 14:10 | Progress Note - Hospitalist ---
Subjective HPI/CC On Admission Date Seen by Provider: Nov 17, 2021 Patient is a 76-year-old female with a past medical history of hypertension, DVT on Xarelto, coronary artery disease who presented to the ER due to weakness and shortness of breath. She reports her symptoms started roughly 2 weeks ago and have continued to worsen in that time span. She has a known history of anemia and her hemoglobin has been checked by her primary care doctor. She states a few months ago her hemoglobin was 6 and she was prescribed IV iron. Last month her hemoglobin was 12. Yesterday she was so weak that she could not even do her dishes and was very short of breath so decided to seek evaluation in the emergency room after talking with her primary care doctor's office. In the ER she was found to have a hemoglobin of 6.2 and was admitted for further work-up. Her Hemoccult was positive. She does report dark stools but thought it was due to the iron she takes. Subjective/Events-last exam Pt reports doing well. No complaints. Just awaiting her surgery. Objective Exam Vital Signs Vital Signs Date Time Temp Pulse Resp B/P (MAP) Pulse Ox O2 Delivery O2 Flow Rate FiO2 11/17/21 11:47 37.0 67 19 131/77 (95) 95 Room Air Capillary Refill : Less Than 3 Seconds General Appearance: No Apparent Distress, WD/WN Respiratory: Lungs Clear, No Respiratory Distress Cardiovascular: Regular Rate, Rhythm, No Murmur Gastrointestinal: Normal Bowel Sounds, Soft Neurologic/Psychiatric: Alert, Oriented x3 Results/Procedures Lab Laboratory Tests 11/17/21 05:01 Patient resulted labs reviewed. Imaging: Reviewed Imaging Report Assessment/Plan Assessment and Plan Assess & Plan/Chief Complaint GI Bleed Invasive adenocarcinoma- POA Hgb stable at 8.7 s/p transfusion of 2 units pRBCs FOBT+ Surgery consulted, appreciate recs EGD and colonoscopy revealed mass in colon CT Chest/Abd/Pelvis shows colonic mass Resection planned today History of DVT On Xarelto, held for now Usg negative at this time HTN Bp well controlled, trend Osteoarthritis Requests Ortho referral upon discharge DVT ppx: SCDs only due to anemia and surgery Diagnosis/Problems Diagnosis/Problems (1) GI bleed Status: Acute Qualifiers: GI bleed type/associated pathology: unspecified gastrointestinal hemorrhage type Qualified Codes: K92.2 - Gastrointestinal hemorrhage, unspecified (2) CAD (coronary artery disease) (3) Essential (primary) hypertension (4) Debility (5) H/O deep venous thrombosis (6) Chronic anticoagulation CLIVE BARRAGAN MD Nov 17, 2021 14:10
[2021-11-17] MEDS ORDERED: GLYCOPYRROLATE 0.2 MG/ML (ROBINUL) 2 ML VIAL ONE (14:50)
[2021-11-17] MEDS ORDERED: PHENYLEPHRINE 100 MCG/ML 10 ML (ANESTHESIA) SYR ONE (15:04)
[2021-11-17] MEDS ORDERED: ROPIVACAINE 5MG/ML 30ML VIAL ONE (15:37)
[2021-11-17] MEDS ORDERED: ONDANSETRON 4 MG/2 ML (SDV) Z0FRAN ONE (15:38)
[2021-11-17] MEDS ORDERED: ceFAZolin 2 GM IV Premixed 50 ML IV SCH (15:45)
[2021-11-17] MEDS ORDERED: SEVOFLURANE (ULTANE) 15 ML INHAL SOLN ONE (15:56)
[2021-11-17] MEDS ORDERED: morphine INJ 10 MG/ML 1ML (SYR OR VIAL) IVP PRN (16:00)
[2021-11-17] MEDS ORDERED: HYDROmorphone 2 MG/ML VIAL (DILAUDID) ONE (16:04)
[2021-11-17] MEDS ORDERED: HYDROmorphone 2 MG/ML VIAL (DILAUDID) IV ONE (16:15)
[2021-11-17] MEDS ORDERED: ONDANSETRON 4 MG/2 ML (SDV) Z0FRAN IVP PRN (16:15)
--- NOTE | 2021-11-17 16:51 | Progress Note-Post Operative ---
Post-Operative Progess Note Surgeon (s)/Store Sales Manager (s) Surgeon YAKOV ESPINOZA DO Store Sales Manager: Dr. Mccall Pre-Operative Diagnosis right colon cancer Post-Operative Diagnosis same Procedure & Operative Findings Date of Procedure 11/17/21 Procedure Performed/Findings lap hand assisted extended right colon resection Anesthesia Type general Estimated Blood Loss Estimated blood loss (mL): minimal Specimens/Packing Specimens Removed right colon YAKOV ESPINOZA DO Nov 17, 2021 16:51
[2021-11-17] MEDS: ONDANSETRON 4 MG/2 ML (SDV) Z0FRAN IV PRN ×2 (17:22→21:39)
[2021-11-17] MEDS: metroNIDAZOLE 500MG/100ML IVPB 100 ML IV SCH (21:20)
[2021-11-17] MEDS: CYCLOBENZAPRINE 10 MG (FLEXERIL) TAB PO SCH (21:20)
[2021-11-17] MEDS: MELATONIN 3 MG TABLET PO PRN (21:27)
[2021-11-17] MEDS: clonazePAM 1 MG (KlonoPIN) TAB PO PRN (21:27)
[2021-11-17] MEDS: morphine INJ 4 MG/ML 1 ML (VIAL/SYRINGE) IV PRN (21:27)
[2021-11-18] MEDS: morphine INJ 4 MG/ML 1 ML (VIAL/SYRINGE) IV PRN ×5 (01:14→21:32)
--- NOTE | 2021-11-18 03:40 | OPERATIVE REPORT ---
DATE OF SERVICE: 11/17/2021 PREOPERATIVE DIAGNOSIS: Right colon invasive adenocarcinoma. POSTOPERATIVE DIAGNOSIS: Right colon invasive adenocarcinoma. PROCEDURE: Laparoscopic hand-assisted extended right colon resection. SURGEON: Yakov Davenport DO CARGO BRACER: Dr. Mccall, assisted in retraction, dissection and closure. ANESTHESIA: General. ESTIMATED BLOOD LOSS: Minimal. COMPLICATIONS: None. INDICATIONS: The patient is a 76-year-old female who was admitted for a GI bleed. She had endoscopy, which demonstrated tumor in the right colon ascending. This was tattooed and frozen section demonstrated invasive adenocarcinoma. Due to the friability and the patient admitted for GI bleed and high risk of rebleeding, the CT scan of the abdomen, pelvis, and chest and we discussed proceeding with colon resection. She understands risks and benefits of procedure and wished to proceed. Consent was signed and placed on the chart. DESCRIPTION OF PROCEDURE: The patient was taken to the operating suite. She was prepped and draped in sterile fashion. A timeout was performed. Midline incision was made around the umbilicus for hand port. Hernia was present, which hernia contents were reduced by mobilizing them with cautery. The abdomen was entered. Adhesions were taken down with both blunt and cautery dissection. A 12 mm trocar was placed in the right lower quadrant under direct visualization through the midline incision. A hand port was then inserted and pneumoperitoneum was achieved. A 5 mm trocar was placed in the subxiphoid area. The right colon was mobilized along the white line of Toldt. A tattoo beth was identified, the hepatic flexure was taken down as well. The colon was mobilized to the midline, it was then brought out through the hand port incision. A POLO linear stapler was then fired across the distal small bowel after the small bowel was dissected around and also the distal to the tattoo beth. The transverse colon was dissected around and a POLO stapler was fired across as well. LigaSure was used to divide the mesentery and specimen was obtained. An ileocolonic anastomosis was then created. Using a linear stapler down each limb and a TA stapler was then fired to staple the end, scissors was used to cut the excess to the staple line. The mesentery defect was then closed using 3-0 Vicryl suture. A crotch stitch was also placed with 3-0 Vicryl suture. The anastomosis was patent and open. The abdomen was then irrigated with copious amounts of irrigation. No other pathology noted. The midline incision was then closed using 1-0 looped PDS. The abdomen was then reinspected. No other pathology noted laparoscopically. The abdomen was then desufflated, the trocars were removed. The skin was then closed using tom. The areas were washed and dried and sterile bandages were applied. The patient tolerated the procedure well without any complications. She was taken to recovery room in stable condition. Job ID: [id number] DocumentID: [id number] Dictated Date: 11/17/2021 20:40:49 Administrator Social Welfare Date: 11/18/2021 03:39:07 Dictated By: YAKOV DAVENPORT DO
[2021-11-18 04:07] VITALS: BP 128/79
[2021-11-18] MEDS: metroNIDAZOLE 500MG/100ML IVPB 100 ML IV SCH ×3 (05:24→17:22)
[2021-11-18] MEDS: CATHETER FLUSH 10 ML SYR IVP SCH ×3 (05:31→21:30)
[2021-11-18] MEDS: MULTIVIT W/MINERALS TAB (THERAGRAN M) PO SCH (05:34)
[2021-11-18 05:41] LABS: HEMATOCRIT 28 % (35-52); HEMOGLOBIN 8.9 g/dL (11.5-16.0); MEAN CORPUSCULAR HEMOGLOBIN 28 pg (25-34); MEAN CORPUSCULAR HGB CONC 32 g/dL (32-36); MEAN CORPUSCULAR VOLUME 86 fL (80-99); MEAN PLATELET VOLUME 9.4 fL (9.0-12.2); PLATELET COUNT 234 10^3/uL (130-400); WHITE BLOOD COUNT 18.3 10^3/uL (4.3-11.0)
[2021-11-18 05:57] LABS: CALCIUM 8.7 MG/DL (8.5-10.1); CREATININE SERUM 1.29 MG/DL (0.60-1.30); POTASSIUM 3.9 MMOL/L (3.6-5.0)
[2021-11-18 07:25] VITALS: BP 122/61
--- NOTE | 2021-11-18 08:27 | Anesthesia-General Post-Op ---
General Patient Condition Mental Status/LOC: Same as Preop Cardiovascular: Satisfactory Nausea/Vomiting: Absent Respiratory: Satisfactory Pain: Controlled Complications: Absent Post Op Complications Complications None Follow Up Care/Instructions Patient Instructions None needed. Anesthesia/Patient Condition Patient Condition Patient is doing well, no complaints, stable vital signs, no apparent adverse anesthesia problems. No complications reported per nursing. D/C home per [facility] Criteria: Yes OMAR IBANEZ CRNA Nov 18, 2021 08:27
[2021-11-18] MEDS ORDERED: cefTRIAXone 1 GM PRE-MIX 50 ML IV NR (08:30)
[2021-11-18] MEDS ORDERED: fentaNYL INJ 100 MCG/2 ML AMP IVP PRN (08:45)
[2021-11-18] MEDS ORDERED: fentaNYL INJ 100 MCG/2 ML AMP IV NR (09:00)
--- NOTE | 2021-11-18 09:08 | Progress Note - Hospitalist ---
Subjective HPI/CC On Admission Date Seen by Provider: Nov 18, 2021 Patient is a 76-year-old female with a past medical history of hypertension, DVT on Xarelto, coronary artery disease who presented to the ER due to weakness and shortness of breath. She reports her symptoms started roughly 2 weeks ago and have continued to worsen in that time span. She has a known history of anemia and her hemoglobin has been checked by her primary care doctor. She states a few months ago her hemoglobin was 6 and she was prescribed IV iron. Last month her hemoglobin was 12. Yesterday she was so weak that she could not even do her dishes and was very short of breath so decided to seek evaluation in the emergency room after talking with her primary care doctor's office. In the ER she was found to have a hemoglobin of 6.2 and was admitted for further work-up. Her Hemoccult was positive. She does report dark stools but thought it was due to the iron she takes. Subjective/Events-last exam Pt reports gas pains. No radiation of pain. No flatus yet. Objective Exam Vital Signs Vital Signs Date Time Temp Pulse Resp B/P (MAP) Pulse Ox O2 Delivery O2 Flow Rate FiO2 11/18/21 07:25 36.4 71 20 122/61 (81) 93 Room Air 11/17/21 17:03 2.00 Capillary Refill : Less Than 3 Seconds General Appearance: No Apparent Distress, Obese Respiratory: Lungs Clear, No Respiratory Distress Cardiovascular: Regular Rate, Rhythm, No Murmur Gastrointestinal: Abnormal Bowel Sounds (absent), Distended (mild), Tenderness (appropriately so), Other (ABD in place- minimal blood) Neurologic/Psychiatric: Alert, Oriented x3 Results/Procedures Lab Laboratory Tests 11/18/21 05:22 Patient resulted labs reviewed. Imaging: Reviewed Imaging Report Assessment/Plan Assessment and Plan Assess & Plan/Chief Complaint GI Bleed Invasive adenocarcinoma- POA Hgb stable at 8.9 s/p transfusion of 2 units pRBCs throughout admission Surgery consulted, appreciate recs EGD and colonoscopy revealed mass in colon- frozen revealed invasive adenocarcinoma CT Chest/Abd/Pelvis shows colonic mass Bowel resection POD #1 final path pending History of DVT On Xarelto, held for now Usg negative at this time HTN Bp well controlled, trend Osteoarthritis Requests Ortho referral upon discharge DVT ppx: SCDs only due to anemia and surgery Diagnosis/Problems Diagnosis/Problems (1) GI bleed Status: Acute Qualifiers: GI bleed type/associated pathology: unspecified gastrointestinal hemorrhage type Qualified Codes: K92.2 - Gastrointestinal hemorrhage, unspecified (2) CAD (coronary artery disease) (3) Essential (primary) hypertension (4) Debility (5) H/O deep venous thrombosis (6) Chronic anticoagulation CLIVE BARRAGAN MD Nov 18, 2021 09:08
[2021-11-18] MEDS ORDERED: fentaNYL INJ 100 MCG/2 ML AMP IVP NR (09:10)
[2021-11-18] MEDS: HydroCHLOROthiazide CAP/TABLET 12.5 MG TAB PO SCH (09:14)
[2021-11-18] MEDS: LOSARTAN 100 MG (COZAAR) TABLET PO SCH (09:14)
[2021-11-18] MEDS ORDERED: PANTOPRAZOLE 40 MG (PROTONIX) VIAL ONE (09:18)
[2021-11-18] MEDS: PANTOPRAZOLE 40 MG (PROTONIX) VIAL IV SCH ×2 (09:20→21:31)
--- NOTE | 2021-11-18 10:16 | Progress Note - Surgery ---
PEACE LU 11/18/21 1016: Subjective Date Seen by a Provider: Nov 18, 2021 Time Seen by a Provider: 10:09 Subjective/Events-last exam Pt is resting comfortably. Pt reports gas pains and has been placed on a fentanyl drip to help with pain. Pt has been tolerating clears well. Pt has not had any flatus or bowel movements. Pt denies any n/v, SOB, CP, and sweats. Objective Exam Vital Signs Date Time Temp Pulse Resp B/P (MAP) Pulse Ox O2 Delivery O2 Flow Rate FiO2 11/18/21 07:25 36.4 71 20 122/61 (81) 93 Room Air 11/18/21 04:07 37.2 72 20 128/79 (95) 92 Room Air 11/17/21 23:33 36.1 69 20 105/69 (81) 90 Room Air 11/17/21 21:35 Room Air 11/17/21 20:20 37.0 67 18 128/64 (85) 95 Room Air 11/17/21 17:03 36.7 63 22 170/73 (105) 96 Nasal Cannula 2.00 11/17/21 16:57 OxyMask 2.00 11/17/21 16:50 36.8 17 131/73 (92) 95 Nasal Cannula 2.00 11/17/21 16:45 OxyMask 2.00 11/17/21 16:40 14 149/78 (101) 98 OxyMask 2.00 11/17/21 16:30 OxyMask 4.00 11/17/21 16:30 15 153/77 (102) 98 OxyMask 4.00 11/17/21 16:20 14 152/77 (102) 98 OxyMask 4.00 11/17/21 16:15 OxyMask 6.00 11/17/21 16:10 16 157/79 (105) 100 OxyMask 6.00 11/17/21 16:00 36.5 16 155/82 (106) 99 OxyMask 6.00 11/17/21 16:00 OxyMask 6.00 11/17/21 11:47 37.0 67 19 131/77 (95) 95 Room Air I & O 11/18/21 07:00 Intake Total 2897 ml Output Total 700 ml Balance 2197 ml Capillary Refill : Less Than 3 Seconds General Appearance: No Apparent Distress, Obese HEENT: PERRL/EOMI, Normal ENT Inspection Neck: Normal Inspection Respiratory: No Accessory Muscle Use, No Respiratory Distress Cardiovascular: Regular Rate, Rhythm, No Murmur Gastrointestinal: soft, tenderness (Right sided tenderness ), other (Midline incision from right resection and laparoscopic incisions-dry, pink, and intact) Extremity: Normal Inspection, Non Tender Neurologic/Psychiatric: Alert, Oriented x3 Skin: Normal Color, Warm/Dry Lymphatic: No Adenopathy Results Lab Laboratory Tests 11/18/21 05:22: White Blood Count 18.3H, Red Blood Count 3.21L, Hemoglobin 8.9L, Hematocrit 28L, Mean Corpuscular Volume 86, Mean Corpuscular Hemoglobin 28, Mean Corpuscular Hemoglobin Concent 32, Red Cell Distribution Width 14.7H, Platelet Count 234, Mean Platelet Volume 9.4, Sodium Level 137, Potassium Level 3.9, Chloride Level 105, Carbon Dioxide Level 22, Anion Gap 10, Blood Urea Nitrogen 10, Creatinine 1.29, Estimat Glomerular Filtration Rate 43, BUN/Creatinine Ratio 8, Glucose Level 155H, Calcium Level 8.7 Microbiology 11/16/21 MRSA Screen - Final, Complete MRSA not isolated Assessment/Plan Assessment/Plan Assessment/Plan Anemia-improved after transfusions Occult positive stool fci anticoagulation Lightheadedness h/o abdominal DVT h/o pericardial effusion ventral hernia Hgb transfusion-11/14 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 She denied flatus and is taking some fluids. Nurse states she has only had appx 100ml of urine output in past 5 hours. Review of Systems General: Fatigue Cardiovascular: No: Chest Pain, Palpitations Gastrointestinal: Abdominal Pain; No: Nausea, Vomiting Objective Exam General Appearance: No Apparent Distress, Obese HEENT: PERRL/EOMI Respiratory: Lungs Clear, Normal Breath Sounds, No Accessory Muscle Use, No Respiratory Distress Cardiovascular: Regular Rate, Rhythm, No Murmur Gastrointestinal: soft, tenderness (Right sided tenderness ), other (Midline incision from right resection and laparoscopic incisions-dry, pink, and intact) Neurologic/Psychiatric: Alert, Oriented x3 Assessment/Plan Assessment/Plan Assessment/Plan S/p lap hand assisted extended right colon resection 11/17 Pts urine output less than desired and will start IV fluids (for some reason she was hep-locked), encourage PO fluids, Continue pain management dressing changes, Encourage IS and ambulation, did tell her chewing gum helps return of bowel fxn. Supervisory-Addendum Brief Verification & Attestation Participated in pt care: history, MDM, physical Personally performed: exam, history, MDM, supervision of care Care discussed with: Medical Student Procedures: n/a Verification and Attestation of Medical Student E/M Service A medical student performed and documented this service. I then reviewed and verified all information documented by the medical student and made modifications to such information, when appropriate. I personally performed a physical exam, medical decision making and then discussed any differences between the notes and made revisions as necessary to create one note. Delon Mccall , 11/18/21 , 14:55 PEACE LU Nov 18, 2021 10:16 DELON MCCALL DO Nov 18, 2021 14:55
[2021-11-18] MEDS: PROPRANOLOL 20 MG (INDERAL) TABLET PO SCH ×2 (11:14→21:30)
[2021-11-18 11:39] VITALS: BP 118/59
[2021-11-18] MEDS: NS IV 1000 ML 1,000 ML IV SCH ×3 (13:10→22:29)
[2021-11-18 15:30] VITALS: BP 108/57
[2021-11-18 19:42] VITALS: BP 131/70
[2021-11-18] MEDS: clonazePAM 1 MG (KlonoPIN) TAB PO PRN (21:31)
[2021-11-18] MEDS: MELATONIN 3 MG TABLET PO PRN (21:31)
[2021-11-18] MEDS: CYCLOBENZAPRINE 10 MG (FLEXERIL) TAB PO SCH (21:31)
[2021-11-18 23:05] VITALS: BP 113/62
[2021-11-19] VITALS (7 sets, daily range): BP systolic 92–124; BP diastolic 58–67
[2021-11-19] MEDS: morphine INJ 4 MG/ML 1 ML (VIAL/SYRINGE) IV PRN ×2 (03:45→13:06)
[2021-11-19] MEDS: NS IV 1000 ML 1,000 ML IV SCH ×2 (06:00→16:16)
[2021-11-19] MEDS: MULTIVIT W/MINERALS TAB (THERAGRAN M) PO SCH (06:00)
[2021-11-19] MEDS: CATHETER FLUSH 10 ML SYR IVP SCH ×3 (06:18→20:18)
[2021-11-19] MEDS: LOSARTAN 100 MG (COZAAR) TABLET PO SCH (08:53)
[2021-11-19] MEDS: PANTOPRAZOLE 40 MG (PROTONIX) VIAL IV SCH ×2 (08:53→20:18)
[2021-11-19] MEDS: HydroCHLOROthiazide CAP/TABLET 12.5 MG TAB PO SCH (08:54)
[2021-11-19] MEDS: PROPRANOLOL 20 MG (INDERAL) TABLET PO SCH ×2 (08:54→21:02)
--- NOTE | 2021-11-19 09:33 | Progress Note - Surgery ---
TYRELL BOYLE 11/19/21 0933: Subjective Date Seen by a Provider: Nov 19, 2021 Time Seen by a Provider: 08:05 Subjective/Events-last exam Pt states that her abdominal pain has improved since yesterday and she is able to sit up on the side of her bed without too much pain. She is tolerating liquids w/o vomiting or significant nausea. She was passing gas all night long after she started chewing gum but has not had a bowel movement. Denies any sweats/chills. Review of Systems General: No Chills, No Night Sweats Pulmonary: No Dyspnea Gastrointestinal: Nausea (much improved), Abdominal Pain (near midline incision, improved.); No: Vomiting Objective Exam Vital Signs Date Time Temp Pulse Resp B/P (MAP) Pulse Ox O2 Delivery O2 Flow Rate FiO2 11/19/21 08:45 Room Air 11/19/21 07:28 36.7 73 20 124/60 (81) 92 Room Air 11/19/21 03:30 36.4 70 18 108/64 (79) 93 Room Air 11/18/21 23:05 36.6 73 16 113/62 (79) 93 Room Air 11/18/21 21:30 Room Air 11/18/21 21:00 Room Air 11/18/21 19:42 37.0 71 18 131/70 (90) 96 Room Air 11/18/21 15:30 36.7 73 20 108/57 (74) 95 Room Air 11/18/21 11:39 36.0 69 18 118/59 (78) 93 Room Air I & O 11/19/21 07:00 Intake Total 3560 ml Output Total 2050 ml Balance 1510 ml Capillary Refill : Less Than 3 Seconds General Appearance: No Apparent Distress, Obese HEENT: PERRL/EOMI Neck: Normal Inspection Respiratory: Lungs Clear, Normal Breath Sounds, No Accessory Muscle Use, No Respiratory Distress Cardiovascular: Regular Rate, Rhythm, No Murmur Gastrointestinal: soft, tenderness (Right sided/midline tenderness ), other (Midline incision from right resection and laparoscopic incisions-dry, pink, and intact. ) Extremity: Normal Inspection, Non Tender Neurologic/Psychiatric: Alert, Oriented x3 Skin: Normal Color, Warm/Dry Lymphatic: No Adenopathy Results Lab Microbiology 11/16/21 MRSA Screen - Final, Complete MRSA not isolated Assessment/Plan Assessment/Plan Assessment/Plan S/p lap hand assisted extended right colon resection 11/17 Urine output improved with IV fluids. Patient tolerating liquids w/o nausea and is passing gas so will advance to soft diet and switch to oral pain meds. Continue to encourage PO fluids, dressing changes, Encourage IS and ambulation. DELON MCCALL DO 11/19/21 1408: Subjective Time Seen by a Provider: 12:46 Subjective/Events-last exam Pt seen and examined, said she is doing much better today. Lots of flatus, but no BMs and pain has improved. Tolerated clears. Review of Systems General: No Chills, No Night Sweats Pulmonary: No Dyspnea Gastrointestinal: Nausea (much improved), Abdominal Pain (near midline incision, improved.); No: Vomiting Objective Exam General Appearance: No Apparent Distress, Obese HEENT: PERRL/EOMI Respiratory: Lungs Clear, Normal Breath Sounds, No Accessory Muscle Use, No Respiratory Distress Cardiovascular: Regular Rate, Rhythm, No Murmur Gastrointestinal: soft, tenderness (Right sided/midline tenderness ), other (Midline incision from right resection and laparoscopic incisions-dry, pink, and intact. ) Neurologic/Psychiatric: Alert, Oriented x3 Assessment/Plan Assessment/Plan Assessment/Plan POD #2 S/p lap hand assisted extended right colon resection Urine output improved with IV fluids. Patient tolerating liquids w/o nausea and is passing gas so will advance to soft diet and switch to oral pain meds. Continue to encourage PO fluids, dressing changes, Encourage IS and ambulation. Supervisory-Addendum Brief Verification & Attestation Participated in pt care: history, MDM, physical Personally performed: exam, history, MDM, supervision of care Care discussed with: Medical Student Procedures: n/a Verification and Attestation of Medical Student E/M Service A medical student performed and documented this service. I then reviewed and verified all information documented by the medical student and made modifications to such information, when appropriate. I personally performed a physical exam, medical decision making and then discussed any differences between the notes and made revisions as necessary to create one note. Delon Mccall , 11/19/21 , 14:08 TYRELL BOYLE Nov 19, 2021 09:33 DELON MCCALL DO Nov 19, 2021 14:08
--- NOTE | 2021-11-19 11:58 | Progress Note - Hospitalist ---
Subjective HPI/CC On Admission Date Seen by Provider: Nov 19, 2021 Patient is a 76-year-old female with a past medical history of hypertension, DVT on Xarelto, coronary artery disease who presented to the ER due to weakness and shortness of breath. She reports her symptoms started roughly 2 weeks ago and have continued to worsen in that time span. She has a known history of anemia and her hemoglobin has been checked by her primary care doctor. She states a few months ago her hemoglobin was 6 and she was prescribed IV iron. Last month her hemoglobin was 12. Yesterday she was so weak that she could not even do her dishes and was very short of breath so decided to seek evaluation in the emergency room after talking with her primary care doctor's office. In the ER she was found to have a hemoglobin of 6.2 and was admitted for further work-up. Her Hemoccult was positive. She does report dark stools but thought it was due to the iron she takes. Subjective/Events-last exam Pt reports feeling better today. Has passed flatus. Still no BM. Pain improving. Objective Exam Vital Signs Vital Signs Date Time Temp Pulse Resp B/P (MAP) Pulse Ox O2 Delivery O2 Flow Rate FiO2 11/19/21 11:42 36.3 67 18 122/60 (80) 94 Room Air 11/17/21 17:03 2.00 Capillary Refill : Less Than 3 Seconds General Appearance: No Apparent Distress, WD/WN Respiratory: Lungs Clear, No Respiratory Distress Cardiovascular: Regular Rate, Rhythm, No Murmur Gastrointestinal: Soft, Abnormal Bowel Sounds (present but quiet); No Distended Neurologic/Psychiatric: Alert, Oriented x3 Results/Procedures Lab Patient resulted labs reviewed. Imaging: Reviewed Imaging Report Assessment/Plan Assessment and Plan Assess & Plan/Chief Complaint GI Bleed Invasive adenocarcinoma- POA Hgb improvd to 8.9 Surgery consulted, appreciate recs EGD and colonoscopy revealed mass in colon- frozen revealed invasive adenocarcinoma CT Chest/Abd/Pelvis shows colonic mass Bowel resection POD #2 final path pending Await return of bowel function History of DVT On Xarelto, held for now Usg negative at this time HTN Bp well controlled, trend Osteoarthritis Requests Ortho referral upon discharge DVT ppx: SCDs only due to anemia and surgery Diagnosis/Problems Diagnosis/Problems (1) GI bleed Status: Acute Qualifiers: GI bleed type/associated pathology: unspecified gastrointestinal hemorrhage type Qualified Codes: K92.2 - Gastrointestinal hemorrhage, unspecified (2) CAD (coronary artery disease) (3) Essential (primary) hypertension (4) Debility (5) H/O deep venous thrombosis (6) Chronic anticoagulation CLIVE BARRAGAN MD Nov 19, 2021 11:58
[2021-11-19] MEDS: clonazePAM 1 MG (KlonoPIN) TAB PO SCH ×3 (13:05→20:18)
[2021-11-19] MEDS: HYDROcodone/APAP 5 MG/325 MG (LORTAB) TAB PO PRN ×2 (16:17→23:14)
[2021-11-19] MEDS: CYCLOBENZAPRINE 10 MG (FLEXERIL) TAB PO SCH (20:18)
[2021-11-20] VITALS (8 sets, daily range): BP systolic 111–167; BP diastolic 55–88
[2021-11-20] MEDS: NS IV 1000 ML 1,000 ML IV SCH ×2 (02:23→12:35)
[2021-11-20] MEDS: CATHETER FLUSH 10 ML SYR IVP SCH ×3 (03:41→20:04)
[2021-11-20] MEDS: HYDROcodone/APAP 5 MG/325 MG (LORTAB) TAB PO PRN ×3 (04:04→19:55)
[2021-11-20 05:32] LABS: HEMATOCRIT 22 % (35-52); MEAN CORPUSCULAR HEMOGLOBIN 27 pg (25-34); MEAN CORPUSCULAR HGB CONC 32 g/dL (32-36); MEAN CORPUSCULAR VOLUME 86 fL (80-99); MEAN PLATELET VOLUME 9.7 fL (9.0-12.2); PLATELET COUNT 153 10^3/uL (130-400); WHITE BLOOD COUNT 7.5 10^3/uL (4.3-11.0)
[2021-11-20 05:36] LABS: HEMOGLOBIN 6.9 g/dL (11.5-16.0)
[2021-11-20 05:44] LABS: CALCIUM 7.7 MG/DL (8.5-10.1); CREATININE SERUM 1.08 MG/DL (0.60-1.30); POTASSIUM 3.7 MMOL/L (3.6-5.0)
[2021-11-20] MEDS: MULTIVIT W/MINERALS TAB (THERAGRAN M) PO SCH (06:22)
--- NOTE | 2021-11-20 07:42 | Progress Note - Surgery ---
THELMARIOPEACE Seymour 11/20/21 0742: Subjective Date Seen by a Provider: Nov 20, 2021 Time Seen by a Provider: 07:37 Subjective/Events-last exam Pt is resting comfortably. Pt states that her abd pain is decreased from yesterday. Pt has been tolerating soft diet well. Pt says that she had 2-3 bowel movements yesterday that were dark and bloody. Pt's hgb decreased to 6.7 today. Pt notes some ear congestion, sore throat, and sweats. Pt denies CP, SOB, and n/v. Review of Systems General: No Chills; Night Sweats; No Malaise HEENT: No Head Aches, No Visual Changes; Sore Throat Pulmonary: No Dyspnea, No Cough Cardiovascular: No: Chest Pain, Palpitations Gastrointestinal: No: Nausea, Vomiting Genitourinary: No Dysuria, No Frequency Musculoskeletal: No: neck pain, shoulder pain Neurological: No: Weakness, Numbness Objective Exam Vital Signs Date Time Temp Pulse Resp B/P (MAP) Pulse Ox O2 Delivery O2 Flow Rate FiO2 11/20/21 04:02 36.8 74 20 113/75 (88) 92 Room Air 11/19/21 23:08 37.3 81 20 97/67 (77) 95 Room Air 11/19/21 21:06 36.3 71 20 94/58 (70) 94 Room Air 11/19/21 20:20 Room Air 11/19/21 20:02 36.3 74 22 92/63 (73) 95 Room Air 11/19/21 15:30 36.6 69 20 120/58 (78) 94 Room Air 11/19/21 11:42 36.3 67 18 122/60 (80) 94 Room Air 11/19/21 08:45 Room Air I & O 11/20/21 06:59 Intake Total 2800 ml Output Total 1950 ml Balance 850 ml Capillary Refill : Less Than 3 Seconds General Appearance: No Apparent Distress, Obese HEENT: PERRL/EOMI Neck: Normal Inspection Respiratory: No Accessory Muscle Use, No Respiratory Distress Cardiovascular: No JVD, No Murmur Gastrointestinal: soft, tenderness (Right sided/midline tenderness ), other (Midline incision from right resection and laparoscopic incisions-dry, pink, and intact. ) Extremity: Normal Inspection, Non Tender Neurologic/Psychiatric: Alert, Oriented x3 Skin: Normal Color, Warm/Dry Lymphatic: No Adenopathy Results Lab Laboratory Tests 11/20/21 05:21: White Blood Count 7.5, Red Blood Count 2.55L, Hemoglobin 6.9#*L, Hematocrit 22L, Mean Corpuscular Volume 86, Mean Corpuscular Hemoglobin 27, Mean Corpuscular Hemoglobin Concent 32, Red Cell Distribution Width 14.9H, Platelet Count 153, Mean Platelet Volume 9.7, Sodium Level 137, Potassium Level 3.7, Chloride Level 109H, Carbon Dioxide Level 20L, Anion Gap 8, Blood Urea Nitrogen 9, Creatinine 1.08, Estimat Glomerular Filtration Rate 53, BUN/Creatinine Ratio 8, Glucose Lev el 107H, Calcium Level 7.7L Microbiology 11/16/21 MRSA Screen - Final, Complete MRSA not isolated Assessment/Plan Assessment/Plan Assessment/Plan POD #2 S/p lap hand assisted extended right colon resection Anemia 11/20 Continue with soft diet and oral pain medication Encourage PO fluids Dressing changes Encourage IS and ambulation Hgb decreased to 6.7, transfusion recommended. YAKOV DAVENPORT DO 11/20/21 1445: Subjective Subjective/Events-last exam Family history colon cancer patient patient states overall feel a bit better. He is feeling little weak. Hemoglobin did drop to 6.7. Patient is having bowel function. She states her little bit of blood in. She is tolerating diet. No other complaints at this time. Denies nausea vomiting fever sweats chills shortness of breath or chest pain. Objective Exam General Appearance: No Apparent Distress, Obese HEENT: PERRL/EOMI, Normal ENT Inspection Neck: Normal Inspection Respiratory: Chest Non Tender, No Accessory Muscle Use, No Respiratory Distress Cardiovascular: Regular Rate, Rhythm, No JVD Gastrointestinal: soft, tenderness, other (Midline incision from right resection and laparoscopic incisions-dry, pink, and intact. ) Extremity: Normal Inspection, Non Tender Neurologic/Psychiatric: Alert, Oriented x3 Skin: Normal Color, Warm/Dry Lymphatic: No Adenopathy Assessment/Plan Assessment/Plan Assessment/Plan S/p lap hand assisted extended right colon resection Anemia 11/20 Continue with soft diet and oral pain medication Encourage PO fluids Dressing changes Encourage IS and ambulation Hgb decreased to 6.7, transfusion of prbc and follow hgb. Supervisory-Addendum Brief Verification & Attestation Participated in pt care: history, MDM, physical Personally performed: exam, history, MDM, supervision of care Care discussed with: Medical Student Procedures: n/a Results interpretation: Verified all documentation Verification and Attestation of Medical Student E/M Service A medical student performed and documented this service in my presence. I reviewed and verified all information documented by the medical student and made modifications to such information, when appropriate. I personally performed the physical exam and medical decision making. Yakov Davenport, Nov 20, 2021,15:04 PEACE UL Nov 20, 2021 07:42 YAKOV DAVENPORT DO Nov 20, 2021 14:45
[2021-11-20] MEDS: HydroCHLOROthiazide CAP/TABLET 12.5 MG TAB PO SCH (08:23)
[2021-11-20] MEDS: PANTOPRAZOLE 40 MG (PROTONIX) VIAL IV SCH (08:23)
[2021-11-20] MEDS: clonazePAM 1 MG (KlonoPIN) TAB PO SCH ×4 (08:23→20:02)
[2021-11-20] MEDS: PROPRANOLOL 20 MG (INDERAL) TABLET PO SCH ×2 (08:24→20:03)
[2021-11-20] MEDS: LOSARTAN 100 MG (COZAAR) TABLET PO SCH (08:24)
--- NOTE | 2021-11-20 13:24 | Progress Note - Hospitalist ---
Subjective HPI/CC On Admission Date Seen by Provider: Nov 20, 2021 Time Seen by Provider: 09:55 Patient is a 76-year-old female with a past medical history of hypertension, DVT on Xarelto, coronary artery disease who presented to the ER due to weakness and shortness of breath. She reports her symptoms started roughly 2 weeks ago and have continued to worsen in that time span. She has a known history of anemia and her hemoglobin has been checked by her primary care doctor. She states a few months ago her hemoglobin was 6 and she was prescribed IV iron. Last month her hemoglobin was 12. Yesterday she was so weak that she could not even do her dishes and was very short of breath so decided to seek evaluation in the emergency room after talking with her primary care doctor's office. In the ER she was found to have a hemoglobin of 6.2 and was admitted for further work-up. Her Hemoccult was positive. She does report dark stools but thought it was due to the iron she takes. Subjective/Events-last exam She is still feeling weak. She wants to go home. She has been able to get up and move around. She has noticed some blood in her stool. Objective Exam Vital Signs Vital Signs Date Time Temp Pulse Resp B/P (MAP) Pulse Ox O2 Delivery O2 Flow Rate FiO2 11/20/21 12:07 36.6 68 16 143/69 (93) 96 Room Air 11/19/21 07:00 0.00 Capillary Refill : Less Than 3 Seconds General Appearance: No Apparent Distress, Obese Respiratory: Lungs Clear, No Respiratory Distress Cardiovascular: Regular Rate, Rhythm, No Murmur Gastrointestinal: Normal Bowel Sounds, Soft, Tenderness Extremity: Normal Inspection, No Pedal Edema Neurologic/Psychiatric: Alert, Normal Mood/Affect Skin: Normal Color, Warm/Dry Results/Procedures Lab Laboratory Tests 11/20/21 05:21 Patient resulted labs reviewed. Imaging: Reviewed Imaging Report Assessment/Plan Assessment and Plan Assess & Plan/Chief Complaint Acute lower GI bleeding Colon adenocarcinoma Postoperative anemia due to acute blood loss Hgb 6.9 s/p 2 units PRBC Transfuse 1 unit PRBC Repeat H/H tomorrow morning Surgery following History of DVT Xarelto held HTN Osteoporosis DVT prophylaxis: SCDs Diagnosis/Problems Diagnosis/Problems (1) Adenocarcinoma of colon Status: Acute (2) Postoperative anemia due to acute blood loss Status: Acute (3) Acute lower GI bleeding Status: Acute (4) Obesity Status: Chronic NATHANIEL SAMPSON MD Nov 20, 2021 13:24
[2021-11-20] MEDS: PANTOPRAZOLE 40 MG (PROTONIX) TAB PO SCH (16:18)
[2021-11-20] MEDS: CYCLOBENZAPRINE 10 MG (FLEXERIL) TAB PO SCH (20:02)
[2021-11-20] MEDS: morphine INJ 4 MG/ML 1 ML (VIAL/SYRINGE) IV PRN (23:33)
[2021-11-21] MEDS: HYDROcodone/APAP 5 MG/325 MG (LORTAB) TAB PO PRN ×2 (02:32→11:29)
[2021-11-21] MEDS: CATHETER FLUSH 10 ML SYR IVP SCH ×2 (06:28→14:05)
[2021-11-21] MEDS: PANTOPRAZOLE 40 MG (PROTONIX) TAB PO SCH (06:28)
[2021-11-21] MEDS: MULTIVIT W/MINERALS TAB (THERAGRAN M) PO SCH (06:28)
--- NOTE | 2021-11-21 07:47 | Progress Note - Surgery ---
ALYPEACE 11/21/21 0746: Subjective Date Seen by a Provider: Nov 21, 2021 Time Seen by a Provider: 07:43 Subjective/Events-last exam Pt is resting in bed. Pt is visibly teary and upset about having to stay in hospital. Expresses desire to go home. Pt states that she feels like she has the flu and c/o sore throat and sinus pain. Pt is still having BM and voiding. Pt has been tolerating soft diet. Pt denies n/v, sweats, CP, and SOB. Review of Systems General: No Chills, No Night Sweats HEENT: No Head Aches, No Visual Changes Pulmonary: No Dyspnea, No Cough Cardiovascular: No: Chest Pain, Palpitations Gastrointestinal: No: Nausea, Vomiting Genitourinary: No Dysuria, No Frequency Musculoskeletal: No: neck pain, shoulder pain Neurological: No: Weakness, Numbness Objective Exam Vital Signs Date Time Temp Pulse Resp B/P (MAP) Pulse Ox O2 Delivery O2 Flow Rate FiO2 11/20/21 23:19 36.5 74 18 124/66 (85) 96 Room Air 11/20/21 20:30 Room Air 11/20/21 20:15 Room Air 11/20/21 19:36 36.6 76 18 167/88 (114) 96 Room Air 11/20/21 15:58 36.5 76 19 133/70 (91) 96 Room Air 11/20/21 12:07 36.6 68 16 143/69 (93) 96 Room Air 11/20/21 11:12 36.0 64 20 148/74 96 Room Air 11/20/21 09:00 36.1 71 20 111/55 97 Room Air 11/20/21 08:09 36.4 74 18 136/73 (94) 96 Room Air 11/20/21 08:00 Room Air I & O 11/21/21 07:00 Intake Total 840 ml Output Total 2900 ml Balance -2060 ml Capillary Refill : Less Than 3 Seconds General Appearance: No Apparent Distress, Obese HEENT: PERRL/EOMI, Normal ENT Inspection Neck: Normal Inspection, Supple Respiratory: No Accessory Muscle Use, No Respiratory Distress Cardiovascular: Regular Rate, Rhythm, No JVD Gastrointestinal: soft, tenderness (RUQ- improved from yesterday), other (Midline incision from right resection and laparoscopic incisions-dry, pink, and intact. ) Extremity: Normal Inspection, Non Tender Neurologic/Psychiatric: Alert, Oriented x3 Skin: Normal Color, Warm/Dry Lymphatic: No Adenopathy Results Lab Laboratory Tests 11/20/21 13:15: Lab Scanned Report Transfusion Reaction Form 11/21/21 06:50: Influenza Type A (RT-PCR) Not Detected, Influenza Type B (RT-PCR) Not Detected, SARS-CoV-2 RNA (RT-PCR) Not Detected Microbiology 11/16/21 MRSA Screen - Final, Complete MRSA not isolated Assessment/Plan Assessment/Plan Assessment/Plan S/p lap hand assisted extended right colon resection Anemia 11/20 Continue with soft diet and oral pain medication Encourage PO fluids Dressing changes Encourage IS and ambulation Monitor Hgb- post transfusion 11/20. YAKOV DAVENPORT DO 11/21/21 1701: Subjective Subjective/Events-last exam Patient feeling well. Having bowel function. Pain controlled. Hgb stable. No blood in stools. Wanting to go home. Denies n/v fever sweats chills shortness of breath or chest pain. Objective Exam General Appearance: No Apparent Distress, Obese HEENT: PERRL/EOMI, Normal ENT Inspection Neck: Normal Inspection, Supple Respiratory: Chest Non Tender, No Accessory Muscle Use, No Respiratory Distress Cardiovascular: Regular Rate, Rhythm, No JVD Gastrointestinal: soft, tenderness (incision c/d/i) Extremity: Normal Inspection, Non Tender Neurologic/Psychiatric: Alert, Oriented x3 Skin: Normal Color, Warm/Dry Lymphatic: No Adenopathy Assessment/Plan Assessment/Plan Assessment/Plan S/p lap hand assisted extended right colon resection Anemia 11/20 Continue with soft diet and oral pain medication Encourage PO fluids Dressing changes Encourage IS and ambulation Hgb responded appropriately Supervisory-Addendum Brief Verification & Attestation Participated in pt care: history, MDM, physical Personally performed: exam, history, MDM, supervision of care Care discussed with: Medical Student Procedures: n/a Results interpretation: Verified all documentation Verification and Attestation of Medical Student E/M Service A medical student performed and documented this service in my presence. I reviewed and verified all information documented by the medical student and made modifications to such information, when appropriate. I personally performed the physical exam and medical decision making. Yakov Davenport, Nov 21, 2021,17:00 PEACE LU Nov 21, 2021 07:46 YAKOV DAVENPORT DO Nov 21, 2021 17:01
[2021-11-21 08:04] LABS: HEMOGLOBIN 9.1 g/dL (11.5-16.0)
[2021-11-21 08:05] VITALS: BP 144/89
[2021-11-21] MEDS: PROPRANOLOL 20 MG (INDERAL) TABLET PO SCH (09:43)
[2021-11-21] MEDS: HydroCHLOROthiazide CAP/TABLET 12.5 MG TAB PO SCH (09:43)
[2021-11-21] MEDS: clonazePAM 1 MG (KlonoPIN) TAB PO SCH ×2 (09:43→12:31)
[2021-11-21] MEDS: LOSARTAN 100 MG (COZAAR) TABLET PO SCH (09:44)
--- NOTE | 2021-11-21 11:17 | D/C HH Face to Face Order ---
D/C Face to Face Orders Reconcile Patient Problems Problems Reviewed?: Yes Instructions for Patient Via [employer], Patient Instructions/FollowUp: Take medications as prescribed. Follow up with your PCP and Surgery as scheduled. Return with worsening abdominal pain, intractable nausea or vomiting, or if you feel like you are getting worse. Physician to follow Patient: Anthony Discharge Diet for Home: No Restrictions Patient Data-Allergies,Ht & Wt Patient Allergies: Coded Allergies: codeine (Verified Allergy, Unknown, 06/21/20) Home Health Need/Face to Face Date of Face to Face: Nov 21, 2021 Clinical Findings: Generalized weakness and fatigue, Instability, Muscle weakness, Unsteady gait I have seen Pt [id number]: Yes Discharged To: Home Diagnosis/Conditions: Colon adenocarcinoma Anemia History of DVT HTN Debility Problems/Diagnosis/Condition: (1) Adenocarcinoma of colon (2) Postoperative anemia due to acute blood loss (3) Obesity (4) Essential (primary) hypertension (5) H/O deep venous thrombosis Patient is Homebound due to: Zuly fall risk due to instabilty, Muscle weakness Homebound Status Due to the above stated illness, injury or surgical procedure (medical condition or diagnosis) and associated clinical findings, the patient is homebound because of his/her inability to leave home except with aid of a supportive device and/or person AND leaving the home requires a considerable and taxing effort or is medically contraindicated. Pt req the following assistanc: Aid of another person Home Health Nursing Orders Home Health Services Order: Nursing Services, Cell Builder-Evaluate & Treat, Physical Therapy-Evaluate & Treat Home Health Infusion Therapy Line Start Date: Nov 17, 2021 Therapy Orders Therapy Orders: OT (must have SN or PT order), Physical Therapy Therapy Specific Orders: Eval assistive deivces, Teach enviro modifications/safety, Gait training, Increase strength/endurance Certify Stmt I certify that this patient is under my care and that I, a nurse practitioner or a physician; a paperhanger assistant working with me, had a face to face encounter that - meets the physician face to face encounter requirements with this patient as dated. NATHANIEL SAMPSON MD Nov 21, 2021 11:17
[2021-11-21] MEDS ORDERED: ACHD5005 PO (14:08)
--- NOTE | 2021-11-21 16:56 | Discharge Summary ---
Discharge Summary Hospital Course Was the Problem List Reviewed?: Yes Problems/Dx: (1) Adenocarcinoma of colon Status: Acute (2) Postoperative anemia due to acute blood loss Status: Acute (3) Acute lower GI bleeding Status: Acute (4) Obesity Status: Chronic Hospital Course Date of Admission: Nov 14, 2021 at 17:38 Admission Diagnosis : Acute blood loss anemia due to GI bleeding Family Physician/Provider: Lenka Anthony MD Date of Discharge: 11/21/21 Discharge Diagnosis: Adenocarcinoma of the colon, acute blood loss anemia due to GI bleeding Hospital Course: Alina Mercer is a 76 year old female who was admitted with GI bleeding. Surgery was consulted and performed colonoscopy which revealed right colon mass. Pathology showed invasive adenocarcinoma. A CT showed no evidence of metastatic disease. Her CEA was mildly elevated. She underwent a right colon resection. She had issues with acute on chronic blood loss anemia. She required 3 units PRBC during her stay. Her hemoglobin stabilized. She was discharged home with home health care. She should follow up with Oncology and Surgery, as well as her PCP. Labs and Pending Lab Test: Laboratory Tests 11/21/21 06:50: Influenza Type A (RT-PCR) Not Detected, Influenza Type B (RT-PCR) Not Detected, SARS-CoV-2 RNA (RT-PCR) Not Detected 11/21/21 07:35: Hemoglobin 9.1#L, Hematocrit 28L 11/21/21 13:12: Lab Scanned Report Transfusion Reaction Form Microbiology 11/16/21 MRSA Screen - Final, Complete MRSA not isolated Home Meds Active Hydrocodone-Acetamin 5-325 mg (Hydrocodone/Acetaminophen) 5 Mg-325 Mg Tablet 1 Each PO Q4H PRN Reported Lendapw-Ldhxwhmfl-Ibir Tablet (Calcium Carbonate/Mag Oxide/Zn) 333 Mg-133 Mg-5 Mg Tablet 1 Each PO 1200 Multivitamin 1 Each Tablet 1 Each PO 1200 Vitamin B-12 (Cyanocobalamin (Vitamin B-12)) 2,500 Mcg Tab.subl 2,500 Mcg SL DAILY Iron 100-Vitamin C Tablet (Iron,Carbonyl/Ascorbic Acid) 100 Mg-250 Mg Tablet 1 Each PO DAILY Cyclobenzaprine HCl 10 Mg Tablet 10 Mg PO HS Clonazepam 1 Mg Tablet 1 Mg PO HS PRN Xarelto (Rivaroxaban) 20 Mg Tablet 20 Mg PO DAILY Olmesartan-Hctz 40-12.5 mg Tab (Olmesartan/Hydrochlorothiazide) 40 Mg-12.5 Mg Tablet 0.5 Ea PO DAILY TAKES OF A 40/12.5MG TAB Meloxicam 15 Mg Tablet 15 Mg PO HS Tramadol HCl 50 Mg Tablet 50 Mg PO Q6H PRN Propranolol HCl 20 Mg Tablet 40 Mg PO HS TAKES 2 (20MG) TABS Propranolol HCl 20 Mg Tablet 20 Mg PO DAILY Assessment/Pt Instructions Take medications as prescribed. Follow up with your PCP, Oncology, and Surgery. Return with worsening symptoms. Discharge Planning: >30 minutes discharge planning Discharge Instructions Discharge Diet: No Restrictions Activity as Tolerated: Yes Consultations Surgery Discharge Physical Examination Vital Signs Vital Signs Date Time Temp Pulse Resp B/P (MAP) Pulse Ox O2 Delivery O2 Flow Rate FiO2 11/21/21 08:05 36.8 69 18 144/89 (107) 95 Room Air 11/21/21 08:00 0.00 General Appearance: No Apparent Distress, Anxious, Obese HEENT: PERRL/EOMI, Pharynx Normal Respiratory: Lungs Clear, No Respiratory Distress Cardiovascular: Regular Rate, Rhythm, No Edema, No Murmur Gastrointestinal: Normal Bowel Sounds, Non Tender Extremity: Normal Inspection, No Pedal Edema Skin: Normal Color, Warm/Dry Neurologic/Psychiatric: Alert, Oriented x3 Allergies: Coded Allergies: codeine (Verified Allergy, Unknown, 06/21/20) Copy Copies To 1: LENKA ANTHONY MD Discharge Summary Date of Admission Nov 14, 2021 at 17:38 Date of Discharge Nov 21, 2021 at 14:15 Discharge Date: Nov 16, 2021 Discharge Time: 14:15 Admission Diagnosis GI Bleed Consults/Procedures Consulations Surgery Procedures Colon resection Discharge Diagnosis Acute lower GI bleeding Colon adenocarcinoma Postoperative anemia due to acute blood loss (1) Adenocarcinoma of colon Status: Acute (2) Postoperative anemia due to acute blood loss Status: Acute (3) Acute lower GI bleeding Status: Acute (4) Obesity Status: Chronic NATHANIEL SAMPSON MD Nov 21, 2021 16:56
== END 2021-11-21 14:15 | disposition home health service (06) | DRG 330 ==
LOC: EDUNIT# 14:56 → ER 14:58 → 4TH 17:38
PROVIDERS: ADMIT Family Medicine; ATTEND Internal Medicine
PROC: 0DJ08ZZ Inspection of Upper Intestinal Tract, Via Natural or Artificial Opening Endoscopic (ICD-10-PCS; 2021-11-16)
PROC: 0DBK8ZX Excision of Ascending Colon, Via Natural or Artificial Opening Endoscopic, Diagnostic (ICD-10-PCS; 2021-11-16 11:36)
PROC: 0DTF0ZZ Resection of Right Large Intestine, Open Approach (ICD-10-PCS; principal; 2021-11-17 14:09)
DX: C18.2 Malignant neoplasm of ascending colon (principal); D62 Acute posthemorrhagic anemia; I25.10 Atherosclerotic heart disease of native coronary artery without angina pectoris; I12.9 Hypertensive chronic kidney disease with stage 1 through stage 4 chronic kidney disease, or unspecified chronic kidney disease; N18.9 Chronic kidney disease, unspecified; E66.9 Obesity, unspecified; M19.91 Primary osteoarthritis, unspecified site; F41.9 Anxiety disorder, unspecified; Z20.822 Contact with and (suspected) exposure to COVID-19; I25.2 Old myocardial infarction; Z68.33 Body mass index [BMI] 33.0-33.9, adult; Z86.718 Personal history of other venous thrombosis and embolism; Z79.01 Long term (current) use of anticoagulants; Z88.5 Allergy status to narcotic agent
CPT/HCPCS: 36415; 70450; 71045; 71260; 74177; 80048; 80053; 81000; 82378; 82728; 83540; 83550; 83690; 83735; 83880; 84484; 85014; 85018; 85025; 85027; 85610; 85730; 86850; 86900; 86901; 86920; 87081; 87636; 93005; 94664; 96361; 96374

== ENCOUNTER 2021-12-05 11:15 | Outpatient (RCR) | payer MEDICARE, MEDICAID ==
[2021-11-28 12:45] LABS: ALBUMIN 3.9 GM/DL (3.2-4.5); BILIRUBIN,TOTAL 0.3 MG/DL (0.1-1.0); CREATININE SERUM 1.19 MG/DL (0.60-1.30); POTASSIUM 4.5 MMOL/L (3.6-5.0); TOTAL PROTEIN 7.6 GM/DL (6.4-8.2)
[~2021-12-05 11:15] MED LIST changes: +ACHD5005 PO; +CALC-687 PO; +CLON1TAB13 PO; +CYAN25003 SL; +CYCL10TA25 PO; +IRON1TAB89 PO; +MELO15TA39 PO; +MULT-1136 PO; +OLME-9 PO; +PROP20TA5 PO; +RIVA20TA PO; +TRAM50TA3 PO
== END 2021-12-06 | disposition home or self-care (01) ==
LOC: ONC 11:15
PROVIDERS: ATTEND Internal Medicine Hematology & Oncology
DX: C18.9 Malignant neoplasm of colon, unspecified (principal); C77.9 Secondary and unspecified malignant neoplasm of lymph node, unspecified
CPT/HCPCS: 80053; 82378; 82728; 83497; 83540; 83550; 86316; G0463; 36415; 99204